=== PATIENT | female | born 1960 | race African-American/Black ===

== ENCOUNTER 2021-03-12 15:41 | Emergency (ER) | payer BC, SELFPAY ==
--- NOTE | ~2021-03-12 | XR_ITS ---
XR abdomen/kub 1V DATE: 03/12/2021 17:04 INDICATION: Bilateral kidney pain TECHNIQUE: AP projection, 2 views COMPARISON: None FINDINGS: Approximately 3 mm faint calcification overlies the lower pole of the left kidney. A small er faint calcification overlies the upper pole. 4.5 mm calcification overlies the expected course of the left ureter at the S1 level. There are multi ple bilateral pelvic calcifications, which are most likely calcified pelvic phleboliths. There is concern for urinary tract calculi, noncontrast CT abdomen pelvis would be more sensitive and accurate. The bowel gas pattern is unremarkable, without evidence of obstruction. The psoas shadows appear inta ct. No visceromegaly is detected. There is degenerative change and mild levoscoliosis of the lower thoracic and lumbar spine. IMPRESSION: Possible urinary tract calcified calculi; consider noncontrast CT abdomen pelvis for more definitive evaluation for such Otherwise nonspecific abdomen Reviewed, dictated and finalized at [facility]. Reviewed, dictated and finalized at [facility]. IMPRESSION: Possible urinary tract calcified calculi; consider noncontrast CT a bdomen pelvis for more definitive evaluation for such Otherwise nonspecific abdomen
[2021-03-12 15:55] VITALS: BP 145/83; PULSE 82; RESP 18; TEMP 36.7; O2SAT 97
--- NOTE | 2021-03-12 15:57 | ED.URI ---
HPI - URI/Sore Throat General Chief Complaint: Upper Respiratory Infection Stated Complaint: sinus infection Source: patient and RN notes reviewed Mode of arrival: ambulatory Limitations: no limitations History of Present Illness MD elicited complaint: nasal congestion Related Data Allergies Allergy/AdvReac Type Severity Reaction Status Date / Time No Known Allergies Allergy Unverified 11/01/18 12:56 Review of Systems Review of Systems: CONSTITUTIONAL: Denies malaise, chills, sweats, or fever. EYES: Denies visual changes, redness, or discharge. ENT: Reports rhinorrhea, congestion, sinus pain, otalgia and sore throat. CARDIOVASCULAR: Denies chest pain, palpitations, or edema. RESPIRATORY: Reports cough. Denies dyspnea. GASTROINTESTINAL: Denies abdominal pain, nausea, vomiting, diarrhea SKIN: Denies rash or itching. MUSCULOSKELETAL: Denies myalgia. NEUROLOGIC: Denies headache. All systems reviewed & are unremarkable except as noted in HPI and below PMFSH Family History Family History (Updated 02/15/14 @ 07:13 by DOCTOR UNKNOWN) Mother Family history of arthritis Social History Social History Smoking status: Light tobacco smoker Second hand tobacco smoke exposure: No Alcohol intake: current Comments At time of signature, agree with nursing past medical, surgical, social and family history. There is no relevant family history pertinent to the presenting complaint Exam Narrative: GENERAL: Well-appearing, well-nourished, and in no acute distress. HEAD: Normocephalic EYES: PERRLA, conjunctivae clear ENT: Nares clear, turbinates edematous and erythematous, clear discharge. Mucous membranes moist. TM pearly riggins with dull light reflex bilaterally; no tragal tenderness. Oropharynx erythematous without lesions. Tonsils enlarged and without exudate, no drooling, no hoarseness, no trismus, uvula midline. NECK: Supple. No lymphadenopathy CHEST: Clear to auscultation, breath sounds equal. No wheezing, rhonchi, rales, or stridor. No respiratory distress, speaks in full sentences. HEART: Regular rate and rhythm. No murmur heard. SKIN: Warm, dry, no rash. NEURO: Alert and oriented x3. PSYCH: Normal mood and affect Course Course Emergency Course: Patient is aware of diagnosis, understands and agrees to treatment plan. Anticipatory guidance given. Patient agrees to follow-up as directed and is aware of reasons to seek care at the emergency department. Portions of this record may have been created with voice recognition software Vital Signs Vital signs: Vital Signs Temperature 98.1 F 03/12/21 15:55 Pulse Rate 82 03/12/21 15:55 Respiratory Rate 18 03/12/21 15:55 Blood Pressure 145/83 H 03/12/21 15:55 Pulse Oximetry 97 03/12/21 15:55 Temperature 98.1 F 03/12/21 15:55 Pulse Rate 82 03/12/21 15:55 Respiratory Rate 18 03/12/21 15:55 Blood Pressure 145/83 H 03/12/21 15:55 Pulse Oximetry 97 03/12/21 15:55 Reviewed. MDM - URI/Sore Throat MDM Narrative Medical decision making narrative: Differential diagnosis considered: Lawrence virus, strep pharyngitis, allergic rhinitis, upper respiratory tract infection, sinusitis, rhinosinusitis, nasopharyngitis. viral pharyngitis, otitis media, otitis externa, pneumonia, bronchitis, viral cough syndrome, viral syndrome, and influenza. Exam findings show no acute concerns or changes; patient is non-toxic appearing and is in no distress. Patient is appropriate for outpatient treatment and follow-up. Critical Care Time Critical Care Time Critical Care Time: No
--- NOTE | 2021-03-12 16:47 | ED.GENADULT ---
HPI - General Adult General Chief complaint: Urogenital-Female Stated complaint: sinus infection Time Seen by Provider: 03/12/21 16:38 History of Present Illness HPI narrative: 61-year-old female presents with concern for bilateral flank pain, body aches, incontinence of urine, orange-colored urine. She denies abdominal pain, nausea, vomiting, diarrhea. Denies intervention. No separate complaint she reports ongoing problems with her sinuses. Reports she had 2-month history of sinus problems that started in October, improved but did not resolve completely. Reports symptoms worsened in the last 3 weeks. Reports sinus pain, pressure and drainage, thick drainage. Reports she has been using nasal spray with no relief. MD complaint: Flank pain Related Data Allergies Allergy/AdvReac Type Severity Reaction Status Date / Time No Known Allergies Allergy Verified 03/12/21 16:51 Review of Systems Review of Systems: CONSTITUTIONAL: Denies malaise, chills, sweats, or fever. HEENT: Sinus congestion, pain, drainage CARDIOVASCULAR: Denies chest pain, palpitations, or edema. RESPIRATORY: Denies cough or dyspnea. GASTROINTESTINAL: Denies abdominal pain, nausea, vomiting, diarrhea, bloody, or mucous stools. GENITOURINARY: Reports dysuria, hematuria, urine incontinence. MUSCULOSKELETAL: Reports bilateral flank pain and myalgia. [facility] Family History Family History (Updated 02/15/14 @ 07:13 by DOCTOR UNKNOWN) Mother Family history of arthritis Social History Social History Smoking status: Light tobacco smoker Second hand tobacco smoke exposure: No Alcohol intake: current Exam Narrative: GENERAL: Well-appearing, well-nourished, and in no acute distress. HEAD: Normocephalic, atraumatic. EYES: PERRLA, sclera clear ENT: Mucous membranes moist. TM not visible due to excess cerumen. Oropharynx without erythema, edema NECK: Supple CHEST: No respiratory distress. Clear to auscultation. No bony deformities, no asymmetry. Speaks in full sentences. HEART: Regular rate and rhythm. No murmur heard. Normal peripheral pulses. ABDOMEN: Soft, nontender, nondistended, normal active bowel sounds, no palpable masses. No CVA tenderness SKIN: Warm, dry, no visible rash. NEURO: Alert and oriented x3. PSYCH: Normal mood and affect Course Vital Signs Vital signs: Vital Signs Temperature 98.1 F 03/12/21 15:55 Pulse Rate 82 03/12/21 15:55 Respiratory Rate 18 03/12/21 15:55 Blood Pressure 145/83 H 03/12/21 15:55 Pulse Oximetry 97 03/12/21 15:55 Temperature 98.1 F 03/12/21 15:55 Pulse Rate 82 03/12/21 15:55 Respiratory Rate 18 03/12/21 15:55 Blood Pressure 145/83 H 03/12/21 15:55 Pulse Oximetry 97 03/12/21 15:55 Medical Decision Making MDM Narrative Medical decision making narrative: Exam findings and imaging show no acute concerns or changes; patient is non-toxic appearing and is in no distress. Patient is appropriate for outpatient treatment and follow-up. Vital Signs Vital Signs: Vital Signs Temperature 98.1 F 03/12/21 15:55 Pulse Rate 82 03/12/21 15:55 Respiratory Rate 18 03/12/21 15:55 Blood Pressure 145/83 H 03/12/21 15:55 Pulse Oximetry 97 03/12/21 15:55 Temperature 98.1 F 03/12/21 15:55 Pulse Rate 82 03/12/21 15:55 Respiratory Rate 18 03/12/21 15:55 Blood Pressure 145/83 H 03/12/21 15:55 Pulse Oximetry 97 03/12/21 15:55 Imaging Data My impression: Images reviewed, interpreted by radiologist, agree, see report. Radiologist's impression: XR abdomen/kub 1V DATE: 03/12/2021 17:04 INDICATION: Bilateral kidney pain TECHNIQUE: AP projection, 2 views COMPARISON: None FINDINGS: Approximately 3 mm faint calcification overlies the lower pole of the left kidney. A smaller faint calcification overlies the upper pole. 4.5 mm calcification overlies the expected course of the left ureter at the S1 level. There are multiple bilateral pelvic calcifications, w
== END 2021-03-12 17:38 | disposition home or self-care (01) ==
PROVIDERS: Emergency Provider Nurse Practitioner; PCP Physician Assistant
DX: N20.2 Calculus of kidney with calculus of ureter (principal); J01.90 Acute sinusitis, unspecified
CPT/HCPCS: 74018; 81003; 99213; G0463

== ENCOUNTER 2022-08-14 07:26 | Inpatient (IN) | payer BC, SELFPAY ==
[2022-08-14] VITALS (58 sets, daily range): BP systolic 124–181; BP diastolic 71–153; PULSE 74–151; RESP 16–41; TEMP 36.3–36.6; O2SAT 87–100; BMI 50.8
--- NOTE | ~2022-08-14 | XR_ITS ---
XR chest 1V portable 08/14/2022 08:14 Indication: Sudden onset of shortness of breath Procedure: AP portable chest Comparison: 01/06/2007 Findings: Cardiomegaly with pulmonary edema. No significant effusion. No pneumothorax. No acute osseo us abnormality. Impression: 1: Cardiomegaly with pulmonary edema. Reviewed, dictated and finalized at [facility]. TIC BIOLOGIST Impression: 1: Cardiomegaly with pulmonary edema.
--- NOTE | 2022-08-14 07:31 | ED.SOB ---
HPI - SOB/Dyspnea General Chief Complaint: Shortness of Breath/Dyspnea Stated Complaint: SOB History of Present Illness HPI Narrative: Patient is a 62-year-old female who presents ER with shortness of breath. Sudden onset 1 hour ago after waking up. EMS arrived and found patient to hypoxic. She was also in A-fib with RVR with elevated blood pressures. Patient placed on CPAP. Patient denies chest pain or chest pressure. She is very dyspneic still while on CPAP. She endorses orthopnea as well as productive cough. No fevers or chills or sweats. Patient denies history of A-fib however chart review does show a previous visit for atrial fibrillation. Related Data Allergies Allergy/AdvReac Type Severity Reaction Status Date / Time No Known Allergies Allergy Verified 04/08/21 15:36 Review of Systems Review of Systems: All systems reviewed & are unremarkable except as noted in HPI and below Constitutional: Constitutional: Denies chills, Denies fatigue and Denies fever(s) ENT: Denies nasal congestion and Denies sore throat Cardiovascular: Cardiovascular: Denies chest pain, Reports rapid heart rate and Denies radiating jaw, neck or arm pain Respiratory: Respiratory: Denies cough, Reports dyspnea and Denies wheezing Comments: Positive orthopnea Gastrointestinal: Gastrointestinal: Denies abdominal pain, Denies nausea and Denies vomiting Neurologic: Denies syncope, Denies headache(s) and Denies focal weakness PMF Past Medical History Medical History Obstructive sleep apnea Paroxysmal atrial fibrillation Surgical History Surgical History History of hysterectomy History of right knee surgery Family History Family History Mother Family history of arthritis Social History Social History (Updated 08/14/22 @ 15:10 by Beatris Sykes PA-C) Social History: Surrogate medical decision maker: Mabel Marrero, daughter. Code status: Full code. Smoking status: Former smoker Second hand tobacco smoke exposure: No Alcohol intake: current Alcohol use details: Six beers on the weekends. Substance use: never Additional living arrangements comments: Lives alone in [place]. Has 2 grown children. 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 Exam Narrative: GENERAL: Ill-appearing, morbidly obese, and in moderate distress. HEAD: Normocephalic, atraumatic. EYES: PERRLA and EOMI. ENT: Mucous membranes moist. CHEST: Bilateral rales. Moderate respiratory distress. HEART: Regular rate and rhythm. Normal peripheral pulses. ABDOMEN: Soft, nontender, nondistended. EXTREMITIES: Normal range of motion. 1+ edema. SKIN: Warm, dry, no rash. NEURO: Alert and oriented x3. PSYCH: Normal mood and affect. Course Course Emergency Course: Patient informed of diagnosis and treatment plan. Heart rate controlled with diltiazem 10 mg. Patient received IV Lasix as well as oral potassium. Excepted by hospitalist service Dr. Nguyen. Vital Signs Vital signs: Vital Signs Temperature 97.6 F 08/14/22 07:25 Pulse Rate 151 H 08/14/22 07:25 Respiratory Rate 20 08/14/22 07:25 Blood Pressure 166/144 H 08/14/22 07:25 Pulse Oximetry 96 08/14/22 07:25 Oxygen Delivery Room Air 08/14/22 07:25 Temperature 97.6 F 08/14/22 07:25 Pulse Rate 81 08/14/22 16:17 Respiratory Rate 19 08/14/22 16:17 Blood Pressure 181/153 H 08/14/22 16:17 Pulse Oximetry 93 08/14/22 16:17 Oxygen Delivery BiPAP 08/14/22 09:14 MDM - SOB/Dyspnea Lab Data 08/14/22 07:57 08/14/22 07:57 Labs: Lab Results 08/14/22 08/14/22 08/14/22 Range/Units 07:27 07:57 07:57 WBC 7.2 (4.5-10.0) K/mm3 RBC 5.08 (4.2-5.4) M/mm3 Hgb 12.8 (12.0-15.0) g/dL H
--- NOTE | 2022-08-14 07:34 | ECG_ITS ---
Measurements Intervals [place] Rate: 123 P: GA: 0 QRS: -34 QRSD: 90 T: 94 QT: 252 QTc: 361 Interpretive Statements ATRIAL FIBRILLATION WITH RAPID VENTRICULAR RESPONSE LEFT AXIS DEVIATION [QRS AXIS < -30] NONSPECIFIC ST & T-WAVE ABNORMALITY NO PREVIOUS ECG AVAILABLE FOR COMPARISON Electronically Signed On 08-14-2022 15:24:01 PRUNER by Ross Roper M.D.
--- NOTE | 2022-08-14 07:36 | PC.NURSE ---
RT at bedside. pt placed on Bipap.
[2022-08-14] MEDS: dilTIAZem HCl INJ 25 MG/5 ML VIAL 10 MG IV PUSH (07:42)
[2022-08-14] MEDS: NITROGLYCERIN OINTMENT 1 INCH DOSE TRANSDERM (07:56)
[2022-08-14 08:04] LABS: Basophils Absolute Auto 0.1 K/mm3 (0.0-0.1); Basophils Percent Auto 0.7 % (0.2-1.2); Eosinophils Absolute Auto 0.1 K/mm3 (0-0.3); Eosinophils Percent Auto 1.8 % (0-4.4); Hematocrit 40.3 % (37.0-47.0); Hemoglobin 12.8 g/dL (12.0-15.0); Immature Granulocyte Absolute 0.01 K/mm3 (0.00-0.031); Immature Granulocyte Percent A 0.1 % (0-0.5); Lymphocytes Absolute Auto 2.95 K/mm3 (0.9-3.2); Mean Corpuscular HGB Conc 31.8 g/dl (32-36); Mean Corpuscular Hemoglobin 25.2 pg (26-34); Mean Corpuscular Volume 79.3 fl (80-100); Mean Platelet Volume 10.5 fl (7.4-10.4); Monocytes Absolute Auto 0.4 K/mm3 (0.1-0.6); Monocytes Percent Auto 5.3 % (2.6-8.5); Neutrophils Absolute Auto 3.7 K/mm3 (1.3-6.7); Neutrophils Percent Auto 51.1 % (45.5-73.1); Platelet Count Result 253 k/mm3 (150-375); Red Blood Count 5.08 M/mm3 (4.2-5.4); Red Cell Distribution Width 15.9 % (11.5-14.5); White Blood Count 7.2 K/mm3 (4.5-10.0)
[2022-08-14 08:22] LABS: Alanine Aminotransferase 37 U/L (6-35); Albumin Level 4.1 g/dL (3.5-5.1); Alkaline Phosphatase 111 U/L (38-126); Anion Gap 10 mmol/L (8-16); Aspartate Amino Transferase 46 U/L (14-36); Bilirubin,Total 0.7 mg/dL (0.2-1.3); Blood Urea Nitrogen 10 mg/dL (7-17); Calcium 8.3 mg/dL (8.4-10.2); Carbon Dioxide 23 mmol/L (22-30); Chloride 108 mmol/L (98-107); Estimated Glomerular Filt Rate > 60; Glucose 154 mg/dL (65-110); Potassium 2.9 mmol/L (3.4-5.0); Sodium 141 mmol/L (137-145)
[2022-08-14 08:37] LABS: NT Pro B Type Natriuretic Pept 633 pg/mL (19.9-100); Troponin I 0.118 ng/mL (0.000-0.034)
[2022-08-14 08:40] LABS: Influenza A QL RT-PCR Negative (Negative); Influenza B QL RT-PCR Negative (Negative); SARS-CoV-2 RNA PCR Negative
[2022-08-14] MEDS: FUROSEMIDE INJ 40 MG/4 ML VIAL IV PUSH ×2 (08:55→23:34)
[2022-08-14] MEDS: POTASSIUM CHLORIDE 20 MEQ TABLET 40 MEQ PO (08:55)
[2022-08-14 09:36] LABS: INR 1.1; Partial Thromboplastin Time 24.6 SECONDS (22.3-36.8); Prothrombin Time 13.7 Seconds (11.1-14.7)
[2022-08-14] MEDS: dilTIAZem 100 MG/100 ML 100 MG/100 ML BAG IV CONT (10:12)
[2022-08-14] MEDS: ENOXAPARIN 120 MG/0.8 ML SYRINGE SUB-Q ×2 (10:12→23:34)
[2022-08-14 12:10] LABS: Troponin I 0.257 ng/mL (0.000-0.034)
--- NOTE | 2022-08-14 13:35 | ECHO_ITS ---
Patient Info Name: Lis Lazaro Age: 62 years : 1960 Gender: Female Ht: 63 in Wt: 264 lbs BSA: 2.38 m2 HR: 91 bpm BP: 131 / 80 mmHg Heart Rhythm: Atrial Fibrillation Technical Quality: Fair Exam Date: 08/14/2022 3:10 PM Exam Location: [facility] Pulmonary Exam Room: [facility] Patient Status: Inpatient Admit Date: 08/14/2022 Staff Ordering Physician: Beatris Sykes PA-C Horticulture Worker: Alivia Berry RCS Attending Provider: Ross Nguyen MD Referring Physician: Mony VIDALES; Exam Type: CA echo doppler color flow Study Info Indications - CARDIOMEGALY PULM EDEMA AFIB Complete two-dimensional, color flow and Doppler transthoracic echocardiogram is performed. Summary 1. Complete two-dimensional, color flow and Doppler transthoracic echocardiogram is performed. 2. Left ventricular chamber dimension is normal. 3. Left ventricular systolic function is normal, estimated at 60-65%. 4. The left ventricular diastolic function is abnormal. 5. E/e' 16 is elevated. 6. Atrial fibrillation. 7. Left atrial chamber dimension is mildly enlarged. 8. There is mild aortic valve sclerosis. 9. The mitral valve has mildly calcified annulus. 10. There is mild mitral valve regurgitation. 11. No pulmonary hypertension, estimated pulmonary arterial systolic pressure is 34 mmHg. 12. There is trace pulmonic regurgitation. Left Ventricle E/e' 16 is elevated. Atrial fibrillation. Left ventricular chamber dimension is normal. Left ventricular systolic function is normal, estimated at 60-65%. The left ventricular diastolic function is abnormal. Right Ventricle Right ventricular systolic function is normal and with normal TAPSE 2.4 cm. Right ventricular chamber dimension is normal. Left Atria Left atrial chamber dimension is mildly enlarged. Right Atria Right atrial chamber dimension is normal. Aortic Valve The aortic valve is trileaflet. There is mild aortic valve sclerosis. There is no aortic valve stenosis. There is no aortic valve regurgitation. Pulmonic Valve There is trace pulmonic regurgitation. Mitral Valve The mitral valve has mildly calcified annulus. There is no mitral valve stenosis. There is mild mitral valve regurgitation. Tricuspid Valve There is no tricuspid valve regurgitation. No pulmonary hypertension, estimated pulmonary arterial systolic pressure is 34 mmHg. Pericardium/Pleural There is no pericardial effusion. Inferior Vena Cava Normal inferior vena cava with >50% collapse upon inspiration consistent with normal right atrial pressure, 5 mmHg. Aorta The aortic root size at the sinus of Valsalva is normal. Left Ventricular Outflow Tract Name Value Normal LVOT 2D LVOT Diameter 2.0 cm LVOT Doppler LVOT Peak Gradient 6 mmHg LVOT Mean Gradient 3 mmHg LVOT VTI 20 cm LVOT VTI/AV VTI Ratio 0.7 LVOT Stroke Volume 63 ml LVOT CO 16.2 l/min LVOT
--- NOTE | 2022-08-14 14:30 | PM.IMHP ---
H&P: HPI History of Present Illness Date/Time: 08/14/22 14:30 Chief Complaint: Shortness of breath. Narrative: This is a pleasant 62-year-old female with paroxysmal atrial fibrillation and untreated obstructive sleep apnea presented to the emergency department via EMS from home for evaluation of shortness of breath. Patient provides the following history. she has not felt well for a couple of days with generalized weakness, shortness of breath with exertion, and some fluttering in her chest. This morning she was awakened from sleep with sudden shortness of breath and emergency services were summoned. On arrival to the emergency department she was hypertensive with a blood pressure 166/144 and in atrial fibrillation with rapid ventricular response. Due to work of breathing she was placed on BiPAP and she was started on nitropaste and a Cardizem drip for the rapid heart rate. Troponin and proBNP were both a bit elevated at 0.118 and 633 respectively. Chest x-ray showed cardiomegaly with pulmonary edema And she was given a dose of Lovenox 40 mg IV push x1 as well as a therapeutic dose of enoxaparin. She is being admitted in this setting for further treatment evaluation. At the time my evaluation she is feeling a bit better but reports that she is still quite tired. Heart rate is now in the 70s to 80s but she remains in atrial fibrillation. She denies syncope, near syncope, exertional chest pain, pleuritic pain, paroxysmal nocturnal dyspnea, and significant lower extremity edema. No nausea, vomiting, or sweats. She does not drink caffeine in excess. She drinks perhaps 6 beers every other weekend. No known history of thyroid disease. She does not wear her CPAP at nighttime. Review of Systems Review of Systems: Twelve systems were reviewed and are negative except for as per HPI. [facility], [facility] Past Medical History Medical History Obstructive sleep apnea Paroxysmal atrial fibrillation Surgical History Surgical History History of hysterectomy History of right knee surgery Family History Family History Mother Family history of arthritis Social History Social History (Updated 08/14/22 @ 15:10 by Beatris Sykes PA-C) Social History: Surrogate medical decision maker: Mabel Marrero, daughter. Code status: Full code. Smoking status: Former smoker Second hand tobacco smoke exposure: No Alcohol intake: current Alcohol use details: Six beers on the weekends. Substance use: never Additional living arrangements comments: Lives alone in [place]. Has 2 grown children. 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 Meds Home Medications and Allergies Allergies Allergy/AdvReac Type Severity Reaction Status Date / Time No Known Allergies Allergy Verified 04/08/21 15:36 Vital Signs Vital Signs - 24 hr 08/14/22 07:25 08/14/22 08:32 08/14/22 09:14 Temperature 97.6 F Pulse Rate 151 H 74 Respiratory Rate 20 25 H Blood Pressure 166/144 H Pulse Oximetry 96 100 Oxygen Delivery Room Air BiPAP BiPAP 08/14/22 10:12 08/14/22 09:16 08/14/22 11:12 Temperature Pulse Rate 103 H 108 H Respiratory Rate Blood Pressure 152/140 H 180/101 H Pulse Oximetry 87 L Oxygen Delivery Exam Narrative: General: Mildly ill-appearing female on her left side in bed in no acute distress. Weight: 120 kg. HEENT: PERRL, EOMI. Sclera anicteric. Oral mucosa moist. Oropharynx is crowded. Neck: Supple. Exam limited due to neck circumference. No obvious JVD. Respiratory: Respirations are nonlabored and she is speaking in full sentences. Faint crackles at the bases posteriorly. Cardiovascular: Irregularly irregular rate and rhythm. Distant heart tones. Gastrointestinal: Abdomen is soft, obese,
[2022-08-14 16:13] LABS: Magnesium 1.9 mg/dL (1.6-2.3); Potassium 3.5 mmol/L (3.4-5.0)
[2022-08-14 16:37] LABS: Troponin I 0.578 ng/mL (0.000-0.034)
[2022-08-14 18:03] LABS: Hemoglobin A1C 5.9 % (<5.7)
[2022-08-14 19:16] LABS: Thyroid Stimulating Hormone Reflex 0.964 uIU/mL (0.465-4.68)
--- NOTE | 2022-08-14 19:29 | PC.NURSE ---
Received report from Kallie HERNANDEZ. First encounter w/ pt. Pt resting comfortably inbed, NAD, updated pt on plan of care. 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 a&ox4, pt has no complaints.
--- NOTE | 2022-08-14 21:24 | ADMGEN ---
This patient, Lis Lazaro, was admitted to IMU Room 213-01. Patient/family oriented to hospital policies and general routines including ID bracelet, bed and alarms, visiting hours, pain management, procedures, bathroom and other care routines, personal items, smoking policy, room service/diet, and visiting hours. Information on how to activate the Rapid Response Team has been discussed. Patient/Family are encouraged to report perceived risks to care and to ask questions if they do not understand what they are told or what they should do.
[2022-08-14] MEDS: dilTIAZem 100 MG/100 ML 100 MG/100 ML BAG 10 MG IV CONT (23:00)
[2022-08-15] VITALS (21 sets, daily range): BP systolic 100–137; BP diastolic 50–88; PULSE 58–113; RESP 16–24; TEMP 36.2–37.3; O2SAT 91–100
[2022-08-15 04:50] LABS: Hematocrit 39.8 % (37.0-47.0); Hemoglobin 12.7 g/dL (12.0-15.0); Mean Corpuscular HGB Conc 31.9 g/dl (32-36); Mean Corpuscular Volume 78.2 fl (80-100); Mean Platelet Volume 10.7 fl (7.4-10.4); Platelet Count Result 266 k/mm3 (150-375); Red Blood Count 5.09 M/mm3 (4.2-5.4); Red Cell Distribution Width 15.9 % (11.5-14.5); White Blood Count 7.8 K/mm3 (4.5-10.0)
[2022-08-15 05:11] LABS: LDL Cholesterol Direct 124 mg/dL
[2022-08-15 05:23] LABS: Alanine Aminotransferase 37 U/L (6-35); Alkaline Phosphatase 108 U/L (38-126); Anion Gap 6 mmol/L (8-16); Aspartate Amino Transferase 39 U/L (14-36); Bilirubin,Total 0.6 mg/dL (0.2-1.3); Blood Urea Nitrogen 11 mg/dL (7-17); Calcium 8.8 mg/dL (8.4-10.2); Carbon Dioxide 33 mmol/L (22-30); Chloride 99 mmol/L (98-107); Cholesterol 223 mg/dL (0-200); Estimated CRCL calculation 92 ml/min; Estimated Glomerular Filt Rate > 60; Glucose 111 mg/dL (65-110); HDL Direct 44 mg/dL; Magnesium 1.8 mg/dL (1.6-2.3); Potassium 2.9 mmol/L (3.4-5.0); Sodium 138 mmol/L (137-145); Triglycerides 79 mg/dL (<150)
[2022-08-15] MEDS: POTASSIUM CHLORIDE 20 MEQ TABLET.ER 40 MEQ PO (09:25)
[2022-08-15] MEDS: ENOXAPARIN 120 MG/0.8 ML SYRINGE SUB-Q (09:25)
[2022-08-15] MEDS: POTASSIUM CHLORIDE 20 MEQ PACKET (FOR LIQUID) 40 MEQ PO (09:25)
[2022-08-15] MEDS: FUROSEMIDE INJ 40 MG/4 ML VIAL IV PUSH ×2 (09:25→20:11)
[2022-08-15] MEDS: dilTIAZem 100 MG/100 ML 100 MG/100 ML BAG 10 MG IV CONT (09:26)
--- NOTE | 2022-08-15 09:40 | PC.NURSE ---
Patient converted to Sinus [place] at 09:29am Dr. Nguyen notified.
--- NOTE | 2022-08-15 09:44 | ECG_ITS ---
Measurements Intervals [place] Rate: 62 P: 34 IA: 172 QRS: 0 QRSD: 86 T: 83 QT: 471 QTc: 479 Interpretive Statements SINUS RHYTHM PROLONGED QT INTERVAL ABNORMAL ECG COMPARED TO ECG 08/14/2022 07:34:10 SINUS RHYTHM REPLACES ATRIAL FIBRILLATION PROLONGED QT INTERVAL NOW PRESENT Electronically Signed On 08-16-2022 8:02:11 DIRECTOR PATIENT FINANCIAL SERVICES by Ross Roper M.D.
--- NOTE | 2022-08-15 09:58 | PM.CNCAR ---
Assessment and Plan Assessment and plan (1) Atrial fibrillation with rapid ventricular response: Code(s): I48.91 - Unspecified atrial fibrillation Status: Acute Plan This is a 62-year-old woman who has typical obesity sleep apnea hypoventilation syndrome that is not compliant with her CPAP treatment she also has a result of this atrial fibrillation which she is also noncompliant with her antiarrhythmic drug therapy. Her dough catcher notes from the past indicate flecainide has been effective for her. Her echocardiogram during this hospital stay does not show any significant new pathology. I will resume her previously effective antiarrhythmic agent and recommend systemic anticoagulation with Xarelto. Will follow her with you while she is in the hospital I will presume that she will follow-up with her established dough catcher upon discharge. Ross Roper MD [facility] History of Present Illness History of Present Illness Consult date/time: 08/15/22 09:58 Consult reason: atrial fibrillation Reason For Visit: Afib RVR,Respiratory Failure,Pulmonary Edema Narrative: This is a 62-year-old woman I am seeing with the request of the hospitalist because of atrial fibrillation and dyspnea. Patient is unknown to me prior to this consultation. She is a woman who has a history of atrial fibrillation morbid obesity and sleep apnea who clearly is noncompliant with medical treatment and follow-up. She came to the hospital yesterday because of the sudden onset of shortness of breath. She states her heart rate was beating rapidly and erratically as well. She has episodes of her heart beating rapidly off and on for a number of years. She has a history of atrial fibrillation and was seeing dough catcher in [place] for a number of years for follow-up of this. According to their notes which are in the chart she was doing well with flecainide treatment but on her own accord she decided to discontinue her antiarrhythmic therapy and follow-up with these physicians. She will not tell me how long she has been off of her medication. She also has a history of severe sleep apnea that was identified and previously sleep studies and is choosing to not treat this as she has been prescribed CPAP and has never gone through with starting treatment. According to the dough catcher's notes there are no other cardiac pathology identified. An echocardiogram was done at admission to this hospital yesterday which was interpreted by Dr. Domínguez that demonstrates preserved LV systolic function and no serious valvular disease. She is not reporting any orthopnea PND or accumulating edema. There is no history of LV systolic dysfunction now or in the chart previously from what I can tell. Review of Systems Constitutional: Constitutional: Reports lethargy Eyes: Eyes: Reports no additional eye complaints ENT: Reports system reviewed and no additional complaints, except as documented Cardiovascular: Cardiovascular: Reports palpitations Respiratory: Respiratory: Reports dyspnea Gastrointestinal: Gastrointestinal: Reports no additional gastrointestinal complaints Musculoskeletal: Musculoskeletal: Reports no additional musculoskeletal complaints Integumentary/Breasts: Skin/Breast: Reports system reviewed and no additional complaints, except as docu Neurologic: Reports system reviewed and no additional complaints, except as documented Endocrine: Endocrine: Reports no additional endocrine complaints Hematologic/Lymphatic: Hematologic/Lymphatic: Reports no additional hematologic/lymphatic complaints Allergic/Immunologic: Allergic/Immunologic: Reports no additional allergic/immunologic complaints [facility] Past Medical History Medical History Obstructive sleep apnea Paroxysmal atrial fibrillation Surgical History Surgical History History of hystere
--- NOTE | 2022-08-15 12:05 | PM.IMPN ---
Progress Note: A&P Assessment and Plan (1) Atrial fibrillation with rapid ventricular response: Code(s): I48.91 - Unspecified atrial fibrillation Status: Acute (2) Elevated troponin: Code(s): R77.8 - Other specified abnormalities of plasma proteins Status: Acute (3) Cardiomegaly: Code(s): I51.7 - Cardiomegaly Status: Acute (4) Elevated blood pressure reading: Code(s): R03.0 - Elevated blood-pressure reading, without diagnosis of hypertension Status: Acute (5) Pulmonary edema: Code(s): J81.1 - Chronic pulmonary edema Status: Acute (6) Obstructive sleep apnea: Code(s): G47.33 - Obstructive sleep apnea (adult) (pediatric) Status: Acute (7) Hypokalemia: Code(s): E87.6 - Hypokalemia Status: Acute (8) Hyperglycemia: Code(s): R73.9 - Hyperglycemia, unspecified Status: Acute Plan The patient presented to the emergency department via EMS from home for evaluation of sudden onset of shortness of breath this morning as per HPI. Labs, imaging, EKG, and all reports were personally reviewed. She was found to be in atrial fibrillation with rapid ventricular response and she has since been started on a diltiazem drip with improvement in her rate. Chest x-ray shows findings of cardiomegaly and pulmonary edema which are concerning for congestive heart failure and an echocardiogram has been ordered. CHADS2 Vasc score is probably 3 (hypertension, CHF, age) and she has been started on Lovenox 1 milligram/kilogram b.i.d.. She was given 40 mg IV push furosemide in the ED and we will continue with judicious diuresis with close monitoring of volume status, renal function, and electrolytes. Potassium was 2.9 on arrival and that will be replaced and monitored. Troponin is elevated, likely due to AFib/RVR and significant hypertension on arrival as she has no chest pain there no acute ST segment deviations noted on EKG today. Blood pressures have been persistently elevated but have improved while on the Cardizem drip and she will likely need to be started on antihypertensive. Random glucose is elevated at 154; check fasting glucose and hemoglobin A1c. CPAP will be provided for the patient to use while hospitalized. AFib/RVR may very well have been provoked by untreated sleep apnea and this was discussed with the patient. Her home medications will be reviewed and resumed as appropriate. Subjective Date/time seen: 08/15/22 12:05 No new complaints Exam Narrative: General: Mildly ill-appearing female on her left side in bed in no acute distress. Weight: 120 kg. HEENT: PERRL, EOMI. Sclera anicteric. Oral mucosa moist. Oropharynx is crowded. Neck: Supple. Exam limited due to neck circumference. No obvious JVD. Respiratory: Respirations are nonlabored and she is speaking in full sentences. Faint crackles at the bases posteriorly. Cardiovascular: Irregularly irregular rate and rhythm. Distant heart tones. Gastrointestinal: Abdomen is soft, obese, nontender, and nondistended with positive bowel sounds. Skin: Warm and dry. No rash or lesions on limited exam. Extremities: No cyanosis or clubbing. 1+ mina ankle edema bilaterally. Radial and pedal pulses intact. Neurological: Alert. Cranial nerves 2-12 are grossly intact. No gross focal deficits to casual conversation. Psychiatric: Pleasant and cooperative with normal mood and affect. Judgment and insight intact. Objective Data Vital Signs Vital Signs: Vital Signs - 24 hr 08/14/22 12:12 08/14/22 12:15 08/14/22 12:17 Temperature Pulse Rate 94 88 105 H Respiratory Rate 27 H 16 24 H Blood Pressure 154/112 H Pulse Oximetry 93 92 93 Oxygen Delivery Oxygen Flow Rate 08/14/22 12:21 08/14/22 12:30 08/14/22 12:32 Temperature Pulse Rate 98 76 82 Respiratory Rate 24 H 23 H 24 H Blood Pressure 156/106 H 152/105 H Pulse Oximetry 93 93 97 Oxygen Delivery Oxygen Flow Rate 08/14/22
[2022-08-15] MEDS: FLECAINIDE ACETATE 100 MG TABLET PO ×2 (12:14→20:10)
[2022-08-15] MEDS: RIVAROXABAN 20 MG TABLET PO (17:40)
[2022-08-16] VITALS (9 sets, daily range): BP systolic 130–137; BP diastolic 66–86; PULSE 61–73; RESP 16; TEMP 36.4–36.8; O2SAT 93–100
[2022-08-16 08:56] LABS: Hematocrit 41.6 % (37.0-47.0); Hemoglobin 13.1 g/dL (12.0-15.0); Mean Corpuscular HGB Conc 31.5 g/dl (32-36); Mean Corpuscular Volume 79.2 fl (80-100); Mean Platelet Volume 10.3 fl (7.4-10.4); Platelet Count Result 256 k/mm3 (150-375); Red Blood Count 5.25 M/mm3 (4.2-5.4); Red Cell Distribution Width 16.1 % (11.5-14.5); White Blood Count 7.3 K/mm3 (4.5-10.0)
[2022-08-16 09:07] LABS: Alanine Aminotransferase 33 U/L (6-35); Albumin Level 4.1 g/dL (3.5-5.1); Alkaline Phosphatase 94 U/L (38-126); Anion Gap 6 mmol/L (8-16); Aspartate Amino Transferase 32 U/L (14-36); Bilirubin,Total 0.5 mg/dL (0.2-1.3); Blood Urea Nitrogen 14 mg/dL (7-17); Calcium 9.1 mg/dL (8.4-10.2); Carbon Dioxide 31 mmol/L (22-30); Chloride 98 mmol/L (98-107); Estimated CRCL calculation 81 ml/min; Estimated Glomerular Filt Rate > 60; Glucose 132 mg/dL (65-110); Magnesium 1.9 mg/dL (1.6-2.3); Potassium 3.7 mmol/L (3.4-5.0); Sodium 135 mmol/L (137-145)
[2022-08-16] MEDS: FUROSEMIDE INJ 40 MG/4 ML VIAL IV PUSH (09:53)
[2022-08-16] MEDS: POTASSIUM CHLORIDE 20 MEQ TABLET.ER 40 MEQ PO (09:54)
[2022-08-16] MEDS: FLECAINIDE ACETATE 100 MG TABLET PO (09:54)
--- NOTE | 2022-08-16 10:05 | PM.PNCARD ---
Progress Note: A&P Assessment and Plan (1) Paroxysmal atrial fibrillation: Code(s): I48.0 - Paroxysmal atrial fibrillation Status: Acute Plan This is a 62-year-old black female with paroxysmal atrial fibrillation she not surprisingly was symptomatic with her recurrence of her arrhythmia with noncompliance with medical therapy/follow-up in terms of her hypertension arrhythmias and sleep apnea. I have no additional cardiac recommendations at this time her rhythm seems to be stable now that her antiarrhythmic medication has been resumed. Systemic anticoagulation has also been started according to appropriate guidelines. Expect that she will follow-up with her established local hazmat driver upon discharge. Ross Pina MD [facility] Subjective Date/time seen: Date of service: 08/16/22 10:05 Interval history: Follow-up visit in this 62-year-old woman with: Paroxysmal atrial fibrillation likely related to hypertension as well as morbid obesity/sleep apnea. Patient has been started back on her previously effective antiarrhythmic agent/flecainide and is back in sinus rhythm. Systemic anticoagulation also has been started. No cardiovascular complaints this morning Exam Const: General: comfortable and no acute distress Other: Obese black female who is comfortable talking on the phone with family member HENMT: Mouth: Yes moist mucous membranes Eyes: Sclera: sclerae normal Neck: Neck: supple Other: Unable to comment on JVD because of body habitus Resp: Effort & Inspection: normal respiratory effort Other: Breath sounds are distant because of her size but otherwise clear Cardio: Other: S1-S2 normal PMI cannot be palpated no murmur GI: GI Palp: Yes Soft to palpation Auscultation: normal bowel sounds Skin: General skin exam: normal color Neuro: Other: Cognition intact Objective Data Vital Signs Vital Signs: Vital Signs - 24 hr 08/15/22 12:14 08/15/22 12:00 08/15/22 12:00 Temperature 36.7 C 36.7 C Pulse Rate 69 68 68 Respiratory Rate 24 H 24 H Blood Pressure 118/50 L 118/50 L Pulse Oximetry 100 100 Oxygen Delivery 08/15/22 12:00 08/15/22 14:00 08/15/22 12:00 Temperature Pulse Rate 68 64 Respiratory Rate Blood Pressure Pulse Oximetry 100 Oxygen Delivery Room Air 08/15/22 16:00 08/15/22 13:15 08/15/22 16:00 Temperature Pulse Rate 66 61 Respiratory Rate Blood Pressure Pulse Oximetry 100 Oxygen Delivery Room Air 08/15/22 16:00 08/15/22 16:00 08/15/22 18:00 Temperature 37.3 C 37.3 C Pulse Rate 72 72 69 Respiratory Rate 20 20 Blood Pressure 109/64 109/64 Pulse Oximetry 97 97 Oxygen Delivery 08/15/22 19:57 08/15/22 20:10 08/15/22 20:00 Temperature 36.4 C L Pulse Rate 66 65 66 Respiratory Rate 20 20 Blood Pressure 119/67 Pulse Oximetry 97 97 Oxygen Delivery Room Air 08/15/22 20:00 08/15/22 22:00 08/15/22 23:39 Temperature 36.2 C L Pulse Rate 67 74 67 Respiratory Rate 20 Blood Pressure 137/85 Pulse Oximetry 98 Oxygen Delivery 08/15/22 23:11 08/16/22 00:00 08/16/22 02:00 Temperature Pulse Rate 67 64 61 Respiratory Rate 20 Blood Pressure Pulse Oximetry 98 Oxygen Delivery Room Air 08/16/22 04:00 08/16/22 04:00 08/16/22 04:00 Temperature 36.4 C L Pulse Rate 64 64 61 Respiratory Rate 16 16 Blood Pressure 130/66 Pulse Oximetry 93 93 Oxygen Delivery Room Air 08/16/22 05:22 08/16/22 08:00 08/16/22 09:54 Temperature 36.8 C Pulse Rate 61 69 65 Respiratory Rate 16 Blood Pressure 137/86 Pulse Oximetry 97 Oxygen Delivery Intake/Output Intake/Output: Intake & Output 08/13/22 08/14/22 08/15/22 08/16/22 23:59 23:59 23:59 23:59 Intake Total 0 2335 1110 Output Total 3300 750 Balance 0 -965 360 Meds/Results Medications: Active Medications Generic Name Dose Route Start Last Admin Trade Name Freq PRN Reason Stop Dose Admin Acetam
--- NOTE | 2022-08-16 11:35 | PM.DS ---
DS: Admitting Diagnosis Discharge Date August 16, 2022 Admitting Diagnosis AFib, acute exacerbation of CHF diastolic, acute on chronic DS: Discharge Diagnosis Discharge Diagnosis (1) Atrial fibrillation with rapid ventricular response: Code(s): I48.91 - Unspecified atrial fibrillation Status: Acute (2) Elevated troponin: Code(s): R77.8 - Other specified abnormalities of plasma proteins Status: Acute (3) Cardiomegaly: Code(s): I51.7 - Cardiomegaly Status: Acute (4) Elevated blood pressure reading: Code(s): R03.0 - Elevated blood-pressure reading, without diagnosis of hypertension Status: Acute (5) Pulmonary edema: Code(s): J81.1 - Chronic pulmonary edema Status: Acute (6) Obstructive sleep apnea: Code(s): G47.33 - Obstructive sleep apnea (adult) (pediatric) Status: Acute (7) Hypokalemia: Code(s): E87.6 - Hypokalemia Status: Acute (8) Hyperglycemia: Code(s): R73.9 - Hyperglycemia, unspecified Status: Acute DS: Summary Hospital Course Hospital Course: Patient is admitted for CHF exacerbation secondary to atrial fibrillation with RVR. She also has noncompliance a cardiac medications. Her home medications were resumed and she converted back to sinus rhythm. She is otherwise feeling much better. Which she will be discharged on a cardiac regimen including Xarelto and flecainide. Will also discharged on potassium and Lasix. Follow up with her prior dredge operator Time Spent with Patient Time attestation: Total time spent providing and/or coordinating discharge services: Exam Narrative: General: Mildly ill-appearing female on her left side in bed in no acute distress. Weight: 120 kg. HEENT: PERRL, EOMI. Sclera anicteric. Oral mucosa moist. Oropharynx is crowded. Neck: Supple. Exam limited due to neck circumference. No obvious JVD. Respiratory: Respirations are nonlabored and she is speaking in full sentences. Faint crackles at the bases posteriorly. Cardiovascular: Irregularly irregular rate and rhythm. Distant heart tones. Gastrointestinal: Abdomen is soft, obese, nontender, and nondistended with positive bowel sounds. Skin: Warm and dry. No rash or lesions on limited exam. Extremities: No cyanosis or clubbing. 1+ mina ankle edema bilaterally. Radial and pedal pulses intact. Neurological: Alert. Cranial nerves 2-12 are grossly intact. No gross focal deficits to casual conversation. Psychiatric: Pleasant and cooperative with normal mood and affect. Judgment and insight intact. DS: Data Data Completed and Pending Labs on day of discharge: Labs from last 24 hours 08/16/22 08/16/22 08:49 08:49 WBC 7.3 RBC 5.25 Hgb 13.1 Hct 41.6 MCV 79.2 L MCH 25.0 L MCHC 31.5 L RDW 16.1 H Plt Count 256 MPV 10.3 Sodium 135 L Potassium 3.7 Chloride 98 Carbon Dioxide 31 H Anion Gap 6 L BUN 14 Creatinine 0.80 Estim Creat Clear Calc 81 Estimated GFR > 60 Glucose 132 H Calcium 9.1 Magnesium 1.9 Total Bilirubin 0.5 AST 32 ALT 33 Alkaline Phosphatase 94 Total Protein 8.0 Albumin 4.1 Discharge Plan Discharge Attending physician on discharge: Ross Nguyen Consulting providers: Ross Roper Discharging Clinician: Ross Nguyen Patient Disposition: Home, Self-Care Activity: no preference Diet: as tolerated Patient Instructions: Antibiotic Form Stand Alone Forms: General Discharge Information Follow-up/Referrals: Michael Ramirez PA-C [Primary Care Provider] - Discharge Medications: New flecainide 100 mg Tablet 100 mg PO Q12HR 30 Days Qty: 60 0RF Xarelto 20 mg Tablet 20 mg PO DAILY@1700 30 Days Qty: 30 0RF potassium chloride [K-Tab] 20 mEq Tablet Extended Release 40 meq PO DAILY@0800 30 Days Qty: 60 0RF furosemide 40 mg tablet 40 mg PO DAILY Qty: 30 0RF Date of admission
--- NOTE | 2022-08-16 11:53 | PC.NURSE ---
Patiented stated that SHE DOES NOT have any valuables locked away in the hospital. She stated she has all of her personal belongings with her.
== END 2022-08-16 12:20 | disposition home or self-care (01) | DRG 308 ==
LOC: ANHED 07:49 → ANHIMU 11:13
PROVIDERS: Physician Assistant; Admitting Provider Chiropractor; Emergency Provider Emergency Medicine; PCP Physician Assistant; Visit Provider Chiropractor
DX: I48.0 Paroxysmal atrial fibrillation (principal); I50.33 Acute on chronic diastolic (congestive) heart failure; E66.2 Morbid (severe) obesity with alveolar hypoventilation; Z68.43 Body mass index [BMI] 50.0-59.9, adult; R09.02 Hypoxemia; E87.6 Hypokalemia; R73.9 Hyperglycemia, unspecified; I51.7 Cardiomegaly; R03.0 Elevated blood-pressure reading, without diagnosis of hypertension; R77.8 Other specified abnormalities of plasma proteins; Z20.822 Contact with and (suspected) exposure to COVID-19; Z91.14 Patient's other noncompliance with medication regimen
CPT/HCPCS: 36415; 71045; 80053; 80061; 83036; 83735; 83880; 84132; 84443; 84484; 85025; 85027; 85610; 85730; 87636; 93005; 93306; 94660; 96365; 96372; 96375; 96376; 99285; A9270; G0378; J1650; J1940

== ENCOUNTER 2022-08-23 13:25 | Observation (INO) | payer BC, SELFPAY ==
[2022-08-23] VITALS (18 sets, daily range): BP systolic 112–133; BP diastolic 72–101; PULSE 64–144; RESP 19–25; TEMP 36.3–36.6; O2SAT 94–99; BMI 45.6
--- NOTE | ~2022-08-23 | XR_ITS ---
EXAMINATION: XR chest 2V DATE: 08/23/2022 14:41 INDICATION: Atrial fibrillation with RVR, dizziness TECHNIQUE: AP and lateral views of the chest are obtained. COMPARISON: 08/14/2022 FINDINGS: There is mild atelectasis of the lung bases. No pleural effusion or pneumothorax. The cardi omediastinal silhouette is normal. There are bridging osteophytes at multiple levels in the spine, co nsistent with diffuse idiopathic skeletal hyperostosis (DISH). IMPRESSION: 1. Mild atelectasis of the lung bases. Reviewed, dictated and finalized at location F. TING FRAME FIXER
--- NOTE | 2022-08-23 14:18 | ECG_ITS ---
Measurements Intervals [place] Rate: 127 P: MN: 0 QRS: -39 QRSD: 98 T: 61 QT: 291 QTc: 424 Interpretive Statements ATRIAL FLUTTER/TACHYCARDIA WITH RAPID VENTRICULAR RESPONSE LEFT AXIS DEVIATION PATTERN CONSISTENT WITH PULMONARY DISEASE CONSIDER INFERIOR INFARCT, AGE INDETERMINATE BORDERLINE ST-T WAVE ABNORMALITY- HIGH LATERAL LEADS BASELINE ARTIFACT- I, II, AVR ABNORMAL ECG COMPARED TO ECG 08/15/2022 14:45:00 ATRIAL FLUTTER/TACHYCARDIA NOW PRESENT Electronically Signed On 08-23-2022 14:40:33 DATA ENTRY SPECIALIST by Reinaldo Domínguez D.O.
[2022-08-23 14:36] LABS: Basophils Absolute Auto 0.1 K/mm3 (0.0-0.1); Basophils Percent Auto 0.9 % (0.2-1.2); Eosinophils Absolute Auto 0.1 K/mm3 (0-0.3); Hemoglobin 15.6 g/dL (12.0-15.0); Immature Granulocyte Absolute 0.02 K/mm3 (0.00-0.031); Immature Granulocyte Percent A 0.2 % (0-0.5); Lymphocytes Absolute Auto 3.07 K/mm3 (0.9-3.2); Lymphocytes Percent Auto 37.8 % (18.3-44.2); Mean Corpuscular HGB Conc 31.8 g/dl (32-36); Mean Corpuscular Hemoglobin 24.6 pg (26-34); Mean Corpuscular Volume 77.4 fl (80-100); Mean Platelet Volume 10.2 fl (7.4-10.4); Monocytes Absolute Auto 0.8 K/mm3 (0.1-0.6); Monocytes Percent Auto 9.7 % (2.6-8.5); Neutrophils Absolute Auto 4.1 K/mm3 (1.3-6.7); Neutrophils Percent Auto 50.4 % (45.5-73.1); Platelet Count Result 355 k/mm3 (150-375); Red Blood Count 6.33 M/mm3 (4.2-5.4); Red Cell Distribution Width 15.9 % (11.5-14.5); White Blood Count 8.1 K/mm3 (4.5-10.0)
[2022-08-23 14:46] LABS: Alanine Aminotransferase 28 U/L (6-35); Albumin Level 4.9 g/dL (3.5-5.1); Alkaline Phosphatase 135 U/L (38-126); Anion Gap 10 mmol/L (8-16); Aspartate Amino Transferase 29 U/L (14-36); Bilirubin,Total 0.6 mg/dL (0.2-1.3); Blood Urea Nitrogen 28 mg/dL (7-17); Calcium 9.9 mg/dL (8.4-10.2); Carbon Dioxide 23 mmol/L (22-30); Chloride 98 mmol/L (98-107); Estimated CRCL calculation 59 ml/min; Estimated Glomerular Filt Rate > 60; Glucose 116 mg/dL (65-110); Potassium 5.4 mmol/L (3.4-5.0); Sodium 131 mmol/L (137-145)
[2022-08-23 14:49] LABS: INR 1.6; Prothrombin Time 18.8 Seconds (11.1-14.7)
[2022-08-23 14:50] LABS: Partial Thromboplastin Time 35.4 SECONDS (22.3-36.8)
[2022-08-23 14:59] LABS: NT Pro B Type Natriuretic Pept 74 pg/mL (19.9-100); Troponin I 0.015 ng/mL (0.000-0.034)
[2022-08-23] MEDS: dilTIAZem HCl INJ 25 MG/5 ML VIAL 10 MG IV PUSH (15:12)
--- NOTE | 2022-08-23 16:15 | ED.GENADULT ---
HPI - General Adult General Chief complaint: Dizziness Stated complaint: shortness of breath Time Seen by Provider: 08/23/22 14:17 History of Present Illness HPI narrative: Patient is a 62-year-old -[place] female who presents ER with heart palpitations and dizziness. Recently admitted for A-fib with RVR and CHF. Has been compliant with home medication. No increased weight or edema. No chest pain or chest pressure. Feels short of breath when she lays back. Patient does feel lightheaded with positional change. Related Data Allergies Allergy/AdvReac Type Severity Reaction Status Date / Time No Known Allergies Allergy Verified 08/23/22 13:40 Review of Systems Review of Systems: All systems reviewed & are unremarkable except as noted in HPI and below Constitutional: Constitutional: Denies chills, Denies fatigue and Denies fever(s) ENT: Denies nasal congestion and Denies sore throat Cardiovascular: Cardiovascular: Denies chest pain, Reports rapid heart rate and Denies radiating jaw, neck or arm pain Comments: Positive orthopnea Respiratory: Respiratory: Denies cough, Reports dyspnea and Denies wheezing Gastrointestinal: Gastrointestinal: Denies abdominal pain, Denies nausea and Denies vomiting Neurologic: Reports dizziness PMFSH Past Medical History Medical History Obstructive sleep apnea Paroxysmal atrial fibrillation Surgical History Surgical History History of hysterectomy History of right knee surgery Family History Family History Mother Family history of arthritis Social History Social History (Updated 08/14/22 @ 15:10 by Beatris Sykes PA-C) Social History: Surrogate medical decision maker: Mabel Marrero, daughter. Code status: Full code. Smoking status: Never smoker Second hand tobacco smoke exposure: No Alcohol intake: current Drinks per week: 5 Alcohol use details: Six beers on the weekends. Substance use: never Substance use type: does not use Lack of Transportation: No Lack of Food: Never True Current Housing: I Have Housing Concerned About Future Housing: No Difficulty Paying Gas/Electric Bills: No Difficulty Paying for Meds: No Currently Unemployed: No Education: High School Diploma/GED Difficulty w/ Childcare or Family Care: No Additional living arrangements comments: Lives alone in [place]. Has 2 grown children. 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 Spiritual care concerns: No Exam Narrative: GENERAL: Well-appearing, well-nourished, and in no acute distress. HEAD: Normocephalic, atraumatic. EYES: PERRL and EOMI. ENT: Mucous membranes moist. CHEST: Clear to auscultation. No respiratory distress. HEART: Irregular rate and rhythm that is tachycardic. Normal peripheral pulses. ABDOMEN: Soft, nontender, nondistended. EXTREMITIES: Normal range of motion. No edema. SKIN: Warm, dry, no rash. NEURO: Alert and oriented x3. PSYCH: Normal mood and affect. Course Course Emergency Course: Poor improvement of rhythm with bolus of diltiazem. Will start on drip and admit for observation. Patient aware of diagnosis and treatment plan and is in agreement. Vital Signs Vital signs: Vital Signs Temperature 97.7 F 08/23/22 13:37 Pulse Rate 73 08/23/22 13:37 Respiratory Rate 20 08/23/22 13:37 Blood Pressure 113/87 08/23/22 13:37 Pulse Oximetry 96 08/23/22 13:37 Oxygen Delivery Room Air 08/23/22 13:37 Temperature 97.7 F 08/23/22 13:37 Pulse Rate 88 08/23/22 17:23 Respiratory Rate 20 08/23/22 13:37 Blood Pressure 121/83 08/23/22 17:23 Pulse Oximetry 96 08/23/22 13:37 Oxygen Delivery Room Air 08/23/22 13:37 Medical Decision Making Vital Signs Vital Signs
--- NOTE | 2022-08-23 17:15 | PM.IMHP ---
H&P: HPI History of Present Illness Date/Time: 08/23/22 17:15 Chief Complaint: Shortness of breath. Narrative: This is a 62-year-old female with with paroxysmal atrial fibrillation and obstructive sleep apnea/obesity hypoventilation syndrome who presented to the emergency department for evaluation of shortness of breath. Patient provides the following history. She is known to myself and the hospitalist service from a recent admission on 08/14/2022 at which time she presented with similar symptoms, found to be in atrial fibrillation with rapid ventricular response. She was seen in consultation by Dr. Roper who was able to see records from her established social science professor. Appeared that she was previously on flecainide and had been non compliant with that and she had also not been compliant with her CPAP. She was started back on flecainide and Xarelto, converted to a sinus rhythm, and was discharged home in a few days. She was tired on discharge but was otherwise feeling okay. A couple of days thereafter she walked downstairs to change out the laundry and when she came up the stairs she once again feeling increasingly short of breath and tired. This has persisted and she came back in today for evaluation, once again noted to be in atrial fibrillation with rapid ventricular response. She was started on diltiazem in the emergency department and she remains on such with improvement in her rate though she is still in atrial fibrillation. She denies syncope, near syncope, chest pain, pleuritic pain, palpitations (occasional fluttering but rarely), nausea, vomiting, and sweats. He has not had any alcohol since discharge. Pertinent labs include a stable, microcytic anemia, sodium 131, potassium 5.4, BUN 28, creatinine 1.10, proBNP 74, troponin 0.015. Review of Systems Constitutional: Comments: Twelve systems were reviewed and are negative except for as per HPI. COUNT INCLUDES THE [facility] Past Medical History Medical History (Updated 08/23/22 @ 23:15 by Beatris Sykes PA-C) Heart failure with preserved ejection fraction Echo in July 2022 showed an EF of 60 to 65% and abnormal diastolic function. Obstructive sleep apnea Paroxysmal atrial fibrillation Surgical History Surgical History History of hysterectomy History of right knee surgery Family History Family History Mother Family history of arthritis Social History Social History Social History: Surrogate medical decision maker: Mabel Marrero, daughter. Code status: Full code. Smoking status: Former smoker Second hand tobacco smoke exposure: No Alcohol intake: current Drinks per week: 2 Alcohol use details: Six beers on the weekends. Substance use: never Substance use type: does not use Lack of Transportation: No Lack of Food: Never True Current Housing: I Have Housing Concerned About Future Housing: No Difficulty Paying Gas/Electric Bills: No Difficulty Paying for Meds: No Currently Unemployed: No Education: High School Diploma/GED Difficulty w/ Childcare or Family Care: No Additional living arrangements comments: Lives alone in [place]. Has 2 grown children. 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 Spiritual care concerns: No Meds Home Medications and Allergies Home Medications Medication Instructions Recorded Confirmed Type flecainide 100 mg tablet 100 mg PO Q12HR 30 days #60 tabs 08/16/22 08/23/22 Rx furosemide 40 mg tablet 40 mg PO DAILY #30 tabs 08/16/22 08/23/22 Rx potassium chloride 20 mEq 40 meq PO DAILY@0800 30 days #60 08/16/22 08/23/22 Rx tablet,extended release (K-Tab) tabs rivaroxaban 20 mg tablet (Xarelto) 20 mg PO DAILY@1700 30 days #30 08/16/22 08/23/22 Rx tabs Allergies Allergy/AdvReac T
[2022-08-23] MEDS: dilTIAZem 100 MG/100 ML 100 MG/100 ML BAG IV CONT (17:23)
[2022-08-23] MEDS: RIVAROXABAN 20 MG TABLET PO (17:25)
--- NOTE | 2022-08-23 20:28 | ADMGEN ---
This patient, Lis Lazaro, was admitted to IMU Room 205-02. Patient/family oriented to hospital policies and general routines including ID bracelet, bed and alarms, visiting hours, pain management, procedures, bathroom and other care routines, personal items, smoking policy, room service/diet, and visiting hours. Information on how to activate the Rapid Response Team has been discussed. Patient/Family are encouraged to report perceived risks to care and to ask questions if they do not understand what they are told or what they should do.
[2022-08-23] MEDS: SODIUM CHLORIDE 0.9% IV 500 ML IV CONT (23:33)
[2022-08-23] MEDS: FLECAINIDE ACETATE 100 MG TABLET PO (23:33)
[2022-08-24] VITALS (15 sets, daily range): BP systolic 99–140; BP diastolic 61–80; PULSE 53–116; RESP 16–20; TEMP 36.2–36.9; O2SAT 96–99
[2022-08-24 04:35] LABS: Anion Gap 9 mmol/L (8-16); Blood Urea Nitrogen 28 mg/dL (7-17); Calcium 9.4 mg/dL (8.4-10.2); Carbon Dioxide 23 mmol/L (22-30); Chloride 100 mmol/L (98-107); Estimated CRCL calculation 64 ml/min; Estimated Glomerular Filt Rate > 60; Glucose 112 mg/dL (65-110); Magnesium 2.4 mg/dL (1.6-2.3); Potassium 4.9 mmol/L (3.4-5.0); Sodium 132 mmol/L (137-145)
[2022-08-24] MEDS: FLECAINIDE ACETATE 100 MG TABLET PO ×2 (08:47→20:48)
--- NOTE | 2022-08-24 12:58 | PM.CNCAR ---
Assessment and Plan Assessment and plan (1) Atrial fibrillation with rapid ventricular response: Code(s): I48.91 - Unspecified atrial fibrillation Status: Acute Assessment and Plan: Back in sinus rhythm. Continue with Flecainide and Xarelto. Patient to follow up with her primary roadway engineer after discharge. (2) Morbid obesity with BMI of 45.0-49.9, adult: Code(s): E66.01 - Morbid (severe) obesity due to excess calories; Z68.42 - Body mass index [BMI] 45.0-49.9, adult Status: Acute (3) Obstructive sleep apnea: Code(s): G47.33 - Obstructive sleep apnea (adult) (pediatric) Status: Acute Assessment and Plan: Needs to wear her CPAP. History of Present Illness History of Present Illness Consult date/time: 08/24/22 12:58 Requesting physician: Steph Arita DO Consult reason: atrial fibrillation Reason For Visit: afib rvr Narrative: We are consulted for atrial fibrillation with RVR. This is a 62-year-old female with known history of atrial fibrillation on Flecainide and Xarelto. Follows with [facility] as her cardiology team. She also has a history of RANCHO. Patient presented with shortness of breath. Found to be in atrial fibrillation with RVR in the ER. Patient started on Diltiazem drip, which has now been discontinued. Home dose of Flecainide restarted. Patient currently in sinus rhythm. Review of Systems Review of Systems: All systems reviewed & are unremarkable except as noted in HPI and below (HPI) [facility] Past Medical History Medical History Heart failure with preserved ejection fraction Echo in July 2022 showed an EF of 60 to 65% and abnormal diastolic function. Obstructive sleep apnea Paroxysmal atrial fibrillation Surgical History Surgical History History of hysterectomy History of right knee surgery Family History Family History Mother Family history of arthritis Social History Social History Social History: Surrogate medical decision maker: Mabel Weissjosé luisl, daughter. Code status: Full code. Smoking status: Former smoker Second hand tobacco smoke exposure: No Alcohol intake: current Drinks per week: 2 Alcohol use details: Six beers on the weekends. Substance use: never Substance use type: does not use Lack of Transportation: No Lack of Food: Never True Current Housing: I Have Housing Concerned About Future Housing: No Difficulty Paying Gas/Electric Bills: No Difficulty Paying for Meds: No Currently Unemployed: No Education: High School Diploma/GED Difficulty w/ Childcare or Family Care: No Additional living arrangements comments: Lives alone in [place]. Has 2 grown children. 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 Spiritual care concerns: No Meds Home Medications and Allergies Home Medications Medication Instructions Recorded Confirmed Type flecainide 100 mg tablet 100 mg PO Q12HR 30 days #60 tabs 08/16/22 08/23/22 Rx furosemide 40 mg tablet 40 mg PO DAILY #30 tabs 08/16/22 08/23/22 Rx potassium chloride 20 mEq 40 meq PO DAILY@0800 30 days #60 08/16/22 08/23/22 Rx tablet,extended release (K-Tab) tabs rivaroxaban 20 mg tablet (Xarelto) 20 mg PO DAILY@1700 30 days #30 08/16/22 08/23/22 Rx tabs Allergies Allergy/AdvReac Type Severity Reaction Status Date / Time No Known Allergies Allergy Verified 08/23/22 13:40 Vital Signs Vital Signs - 24 hr 08/23/22 13:37 08/23/22 17:23 08/23/22 19:37 Temperature 36.5 C Pulse Rate 73 88 126 H Respiratory Rate 20 Blood Pressure 113/87 121/83 130/77 Pulse Oximetry 96 Oxygen Delivery Room Air 08/23/22 19:00 08/23/22 19:01 08/23/22 19:15 Tempera
[2022-08-24] MEDS: RIVAROXABAN 20 MG TABLET PO (17:09)
--- NOTE | 2022-08-24 17:17 | PM.IMPN ---
Progress Note: A&P Assessment and Plan (1) Atrial flutter with rapid ventricular response: Code(s): I48.92 - Unspecified atrial flutter Status: Acute (2) Electrolyte abnormality: Code(s): E87.8 - Other disorders of electrolyte and fluid balance, not elsewhere classified Status: Acute (3) Increase in serum creatinine from prior measurement: Code(s): R79.89 - Other specified abnormal findings of blood chemistry Status: Acute (4) Obstructive sleep apnea: Code(s): G47.33 - Obstructive sleep apnea (adult) (pediatric) Status: Acute (5) Heart failure with preserved ejection fraction: Code(s): I50.30 - Unspecified diastolic (congestive) heart failure Status: Acute Plan patient presented with shortness of breath And found to be in atrial fibrillation with rapid ventricular response. She states compliance with her home medications and CPAP. She was started on a diltiazem drip in the emergency department. diltiazem drip has been discontinued and patient has been restarted on home flecainide. She has converted to sinus rhythm. Will continue home Xarelto for stroke prophylaxis. Appreciate cardiology consultation. Continue home CPAP overnight. Electrolytes are within normal limits. Renal function has returned to baseline. Blood pressures were stable. Continue to monitor on telemetry overnight. Hopeful discharge tomorrow if continued improvement. Patient can be downgraded to medical floor with telemetry given her improvement Subjective Date/time seen: 08/24/22 17:17 Interval history: date of service: 08/24/2022 Lis Lazaro is a 62-year-old female with a history of HFrEF, RANCHO, paroxysmal atrial fibrillation who is seen in follow-up for atrial fibrillation with rapid ventricular response. Patient reports that she can feel her heart dancing and to feeling in her chest. At rest she feels more comfortable when she gets up she feels dizzy and short of breath And she notices her heart pounding more. She denies lightheadedness. Endorses nausea but no vomiting. Denies chest pain. Review of Systems Review of Systems: All systems reviewed & are unremarkable except as noted in HPI and below Exam Narrative: General: Well-nourished, well-appearing 62-year-old female, sitting up in bed, comfortable, NARD Neuro: awake, alert and oriented x4, speech clear, no focal neuro deficits noted HEENMT: normocephalic, atraumatic, EOMI, sclerae anicteric, moist oral mucosa Respiratory: clear to auscultation bilaterally, nonlabored breathing Cardio: regular rate, regular rhythm with S1-S2 Abdomen: nondistended, normoactive bowel sounds, soft, nontender to palpation Extremities: no edema, erythema, or tenderness to palpation, DP pulses 2+ bilaterally Skin: no rashes or lesions, warm and dry Psych: appropriate mood and affect, judgment and insight intact Objective Data Vital Signs Vital Signs: Vital Signs - 24 hr 08/23/22 17:23 08/23/22 19:37 08/23/22 19:00 Temperature Pulse Rate 88 126 H 127 H Respiratory Rate 20 Blood Pressure 121/83 130/77 Pulse Oximetry 96 Oxygen Delivery 08/23/22 19:01 08/23/22 19:15 08/23/22 19:16 Temperature Pulse Rate 124 H 111 H 131 H Respiratory Rate 24 H 25 H 20 Blood Pressure 133/101 H 121/80 Pulse Oximetry 95 94 95 Oxygen Delivery 08/23/22 19:30 08/23/22 19:32 08/23/22 19:45 Temperature Pulse Rate 132 H 122 H 119 H Respiratory Rate 20 21 H 19 Blood Pressure 130/77 Pulse Oximetry 97 94 95 Oxygen Delivery 08/23/22 20:00 08/23/22 20:10 08/23/22 20:07 Temperature 97.3 F L Pulse Rate 119 H 140 H 144 H Respiratory Rate 19 20 Blood Pressure 131/88 Pulse Oximetry 95 98 Oxygen Delivery Room Air 08/23/22 22:00 08/23/22 23:04 08/23/22 23:33 Temperature 97.8 F Pulse Rate 114 H 64 119 H Respiratory Rate 20 Blood Pressure 112/72 Pulse Oximetry 99 Oxygen Delivery
--- NOTE | 2022-08-24 21:59 | PC.NURSE ---
This patient, Lis Lazaro, was transferred to [[id number]] on 08/24/22 at 2159. Personal belongings sent with patient. Report given to [MARY Pearson]. Appropriate documentation sent with patient.
[2022-08-25] VITALS (14 sets, daily range): BP systolic 109–146; BP diastolic 57–101; PULSE 61–140; RESP 18–21; TEMP 36.2–36.8; O2SAT 94–100
[2022-08-25] MEDS: MELATONIN 5 MG TABLET PO (00:08)
[2022-08-25 05:36] LABS: Hematocrit 42.2 % (37.0-47.0); Hemoglobin 13.4 g/dL (12.0-15.0); Mean Corpuscular HGB Conc 31.8 g/dl (32-36); Mean Corpuscular Hemoglobin 25.2 pg (26-34); Mean Corpuscular Volume 79.5 fl (80-100); Platelet Count Result 301 k/mm3 (150-375); Red Blood Count 5.31 M/mm3 (4.2-5.4); Red Cell Distribution Width 14.9 % (11.5-14.5); White Blood Count 6.6 K/mm3 (4.5-10.0)
[2022-08-25 06:00] LABS: Anion Gap 7 mmol/L (8-16); Blood Urea Nitrogen 21 mg/dL (7-17); Calcium 9.1 mg/dL (8.4-10.2); Carbon Dioxide 27 mmol/L (22-30); Chloride 97 mmol/L (98-107); Estimated CRCL calculation 64 ml/min; Estimated Glomerular Filt Rate > 60; Glucose 109 mg/dL (65-110); Magnesium 2.3 mg/dL (1.6-2.3); Potassium 4.4 mmol/L (3.4-5.0); Sodium 131 mmol/L (137-145)
[2022-08-25] MEDS: FLECAINIDE ACETATE 100 MG TABLET PO ×2 (08:25→17:58)
--- NOTE | 2022-08-25 16:27 | PM.IMPN ---
Progress Note: A&P Assessment and Plan (1) Atrial flutter with rapid ventricular response: Code(s): I48.92 - Unspecified atrial flutter Status: Acute Assessment and Plan: patient presented with shortness of breath and found to be in atrial fibrillation with rapid ventricular response. She states compliance with her home medications and CPAP. She was started on a diltiazem drip in the emergency department. diltiazem drip discontinued on 08/24 Continue home flecainide Patient has converted to sinus rhythm but remains symptomatic continue home Xarelto monitor on telemetry Appreciate cardiology consultation. (2) Palpitations: Code(s): R00.2 - Palpitations Status: Acute Assessment and Plan: patient continues to endorse palpitations despite converting to sinus rhythm etiology for this is unclear she does endorse dizziness and lightheadedness. Check orthostatics recent echo from to 08/14/22 was unremarkable, no wall motion abnormalities, no significant valvular disease electrolytes are within normal limits most recent TSH is within normal limits check B12 and folate may be related to stress / anxiety /caffeine. monitor (3) Electrolyte abnormality: Code(s): E87.8 - Other disorders of electrolyte and fluid balance, not elsewhere classified Status: Resolved Assessment and Plan: resolved (4) Increase in serum creatinine from prior measurement: Code(s): R79.89 - Other specified abnormal findings of blood chemistry Status: Acute Assessment and Plan: creatinine slightly elevated at 1.1 on presentation. Resolved. Creatinine 1.0 today (5) Obstructive sleep apnea: Code(s): G47.33 - Obstructive sleep apnea (adult) (pediatric) Status: Acute Assessment and Plan: continue home CPAP (6) Heart failure with preserved ejection fraction: Code(s): I50.30 - Unspecified diastolic (congestive) heart failure Status: Acute Assessment and Plan: most recent EF 60-65% clinically compensated at this time Subjective Date/time seen: 08/25/22 16:27 Interval history: date of service: 08/25/2022 Lis Lazaro is a 62-year-old female with a history of HFrEF, RANCHO, paroxysmal atrial fibrillation who is seen in follow-up for atrial fibrillation with rapid ventricular response. She converted back to sinus rhythm but she continues to feel symptomatic. She feels that her chest is vibrating. She feels dizzy and lightheaded. She denies shortness of breath. Denies chest pain. No nausea or vomiting. Tolerating her diet. States that she can feel her heart pounding in her head in her years. Review of Systems Review of Systems: All systems reviewed & are unremarkable except as noted in HPI and below Exam Narrative: General: Well-nourished, well-appearing 62-year-old female, sitting up in bed, comfortable, NARD Neuro: awake, alert and oriented x4, speech clear, no focal neuro deficits noted HEENMT: normocephalic, atraumatic, EOMI, sclerae anicteric, moist oral mucosa Respiratory: clear to auscultation bilaterally, nonlabored breathing Cardio: regular rate, regular rhythm with S1-S2 Abdomen: nondistended, normoactive bowel sounds, soft, nontender to palpation Extremities: no edema, erythema, or tenderness to palpation, DP pulses 2+ bilaterally Skin: no rashes or lesions, warm and dry Psych: appropriate mood and affect, judgment and insight intact Objective Data Vital Signs Vital Signs: Vital Signs - 24 hr 08/24/22 18:00 08/24/22 20:00 08/24/22 20:00 Temperature 97.4 F L Pulse Rate 74 71 71 Respiratory Rate 16 16 Blood Pressure 112/80 Pulse Oximetry 99 99 Oxygen Delivery Room Air 08/24/22 20:48 08/24/22 20:00 08/24/22 22:00 Temperature Pulse Rate 68 76 69 Respiratory Rate Blood Pressure Pulse Oximetry Oxygen Delivery 08/24/22 23:
[2022-08-25] MEDS: RIVAROXABAN 20 MG TABLET PO (17:09)
[2022-08-25] MEDS: METOPROLOL TARTRATE INJ 5 MG/5 ML VIAL IV PUSH (19:11)
[2022-08-26] VITALS (10 sets, daily range): BP systolic 116–141; BP diastolic 69–80; PULSE 58–67; RESP 20; TEMP 36.2–36.6; O2SAT 97–98
[2022-08-26 05:59] LABS: Hematocrit 40.1 % (37.0-47.0); Hemoglobin 12.5 g/dL (12.0-15.0); Mean Corpuscular HGB Conc 31.2 g/dl (32-36); Mean Corpuscular Hemoglobin 24.5 pg (26-34); Mean Corpuscular Volume 78.6 fl (80-100); Mean Platelet Volume 10.7 fl (7.4-10.4); Platelet Count Result 303 k/mm3 (150-375); Red Cell Distribution Width 14.7 % (11.5-14.5); White Blood Count 7.3 K/mm3 (4.5-10.0)
[2022-08-26 06:08] LABS: Alanine Aminotransferase 19 U/L (6-35); Albumin Level 3.8 g/dL (3.5-5.1); Alkaline Phosphatase 84 U/L (38-126); Anion Gap 5 mmol/L (8-16); Aspartate Amino Transferase 21 U/L (14-36); Bilirubin,Total 0.4 mg/dL (0.2-1.3); Blood Urea Nitrogen 18 mg/dL (7-17); Calcium 8.8 mg/dL (8.4-10.2); Carbon Dioxide 28 mmol/L (22-30); Chloride 103 mmol/L (98-107); Estimated CRCL calculation 71 ml/min; Estimated Glomerular Filt Rate > 60; Glucose 112 mg/dL (65-110); Sodium 136 mmol/L (137-145)
[2022-08-26 07:13] LABS: Folic Acid 12.1 ng/mL (2.76->20)
[2022-08-26] MEDS: FLECAINIDE ACETATE 100 MG TABLET PO (08:27)
[2022-08-26] MEDS: DOCUSATE SODIUM 100 MG CAPSULE PO (08:27)
--- NOTE | 2022-08-26 11:44 | PM.DS ---
DS: Admitting Diagnosis Discharge Date 08/26/2022 Admitting Diagnosis atrial fibrillation with rapid ventricular response DS: Discharge Diagnosis Discharge Diagnosis (1) Atrial flutter with rapid ventricular response: Code(s): I48.92 - Unspecified atrial flutter Status: Acute Assessment and Plan: patient presented with shortness of breath and found to be in atrial fibrillation with rapid ventricular response. reported compliance with her home medications and CPAP. seen in consultation by cardiology she was started on a diltiazem drip in the emergency department. diltiazem drip discontinued on 08/24 pt converted to normal sinus rhythm continue home flecainide continue home Xarelto monitored on telemetry during admission outpatient follow up with her rn x ray scheduled on 08/27/22 (2) Palpitations: Code(s): R00.2 - Palpitations Status: Resolved Assessment and Plan: patient endorsed palpitations despite converting to sinus rhythm etiology unclear orthostatics negative recent echo from to 08/14/22 was unremarkable, no wall motion abnormalities, no significant valvular disease electrolytes within normal limits most recent TSH within normal limits may be related to stress / anxiety /caffeine. Symptoms resolved (3) Electrolyte abnormality: Code(s): E87.8 - Other disorders of electrolyte and fluid balance, not elsewhere classified Status: Resolved Assessment and Plan: resolved (4) Increase in serum creatinine from prior measurement: Code(s): R79.89 - Other specified abnormal findings of blood chemistry Status: Acute Assessment and Plan: creatinine slightly elevated at 1.1 on presentation. Resolved. Creatinine 0.9 at time of discharge (5) Obstructive sleep apnea: Code(s): G47.33 - Obstructive sleep apnea (adult) (pediatric) Status: Acute Assessment and Plan: continue home CPAP (6) Heart failure with preserved ejection fraction: Code(s): I50.30 - Unspecified diastolic (congestive) heart failure Status: Acute Assessment and Plan: most recent EF 60-65% clinically compensated DS: Summary Hospital Course Hospital Course: date of admission: 08/23/2022 date of discharge: 08/26/2022 Lis washington is a 62-year-old female with a history of HFrEF, RANCHO, paroxysmal atrial fibrillation on systemic anticoagulation who presented to the emergency department on 08/23/2022 with complaints of palpitations and dizziness. She had recently been hospitalized for atrial fibrillation with rapid ventricular response. On presentation to the emergency department, her EKG showed atrial flutter with heart rate of 127, additional vital signs were stable, potassium was slightly elevated at 5.4 and creatinine was up from baseline at 1.1, CXR showed no acute findings. She was started on a Cardizem drip and was admitted to the hospitalist service for further evaluation and management. She was seen in consultation by cardiology. Please see above for further details. Cardizem drip was discontinued and patient was restarted on home flecainide. She converted to sinus rhythm. Her symptoms improved and she felt comfortable with plans for discharge home. She has an appointment with her rn x ray tomorrow that she is eager to attend. Discussed with the patient worrisome signs and symptoms for which to return and she was educated on her medications. She was discharged in hemodynamically stable condition on 08/26/2022. Time Spent with Patient Time attestation: Total time spent providing and/or coordinating discharge services: 45 minutes Time spent: Greater than 30 minutes Exam Narrative: General: well-nourished, well-appearing 62-year-old female, sitting up in bed, comfortable, NARD Neuro: awake, alert and oriented x4, speech clear, no focal neuro deficits noted HEENMT: nor
== END 2022-08-26 13:53 | disposition home or self-care (01) ==
LOC: ANHED 18:16 → ANHIMU 19:57 → ANH3MED 08-25 15:54 → ANHIMU 08-27 11:26
PROVIDERS: Physician Assistant; Admitting Provider Hospitalist; Emergency Provider Emergency Medicine; PCP Physician Assistant; Visit Provider Physician Assistant
DX: I48.92 Unspecified atrial flutter (principal); R00.2 Palpitations; E87.8 Other disorders of electrolyte and fluid balance, not elsewhere classified; R79.89 Other specified abnormal findings of blood chemistry; G47.33 Obstructive sleep apnea (adult) (pediatric); Z99.89 Dependence on other enabling machines and devices; I50.30 Unspecified diastolic (congestive) heart failure; R42 Dizziness and giddiness; R06.02 Shortness of breath; F10.90 Alcohol use, unspecified, uncomplicated; R94.31 Abnormal electrocardiogram [ECG] [EKG]; J98.11 Atelectasis; R00.1 Bradycardia, unspecified; E66.01 Morbid (severe) obesity due to excess calories; Z68.42 Body mass index [BMI] 45.0-49.9, adult; Z87.891 Personal history of nicotine dependence; Z79.01 Long term (current) use of anticoagulants; Z79.899 Other long term (current) drug therapy
CPT/HCPCS: 36415; 71046; 80048; 80053; 82607; 82746; 83735; 83880; 84484; 85025; 85027; 85610; 85730; 93005; 94002; 94660; 96360; 96365; 96366; 96374; 96376; 99285; A9270; G0378; J7040

== ENCOUNTER 2022-08-29 05:06 | Emergency (ER) | payer BC, SELFPAY ==
[2022-08-29] VITALS (8 sets, daily range): BP systolic 96–122; BP diastolic 64–87; PULSE 64–115; RESP 16–20; O2SAT 96–99
--- NOTE | ~2022-08-29 | XR_ITS ---
EXAMINATION: XR chest 2V DATE: 08/29/2022 06:31 INDICATION: Chest palpitations TECHNIQUE: PA and lateral views of the chest were obtained. COMPARISON: Chest radiograph dated 08/23/2022 FINDINGS: Again seen is mild streaky atelectasis at the bilateral lung bases. No pulmonary edema, pleural effus ion or pneumothorax. Borderline heart size. IMPRESSION: 1. Borderline heart size and mild bibasilar atelectasis. Reviewed, dictated and finalized at location A. I SKILLED OPERATOR
--- NOTE | 2022-08-29 05:11 | ECG_ITS ---
Measurements Intervals [place] Rate: 93 P: 246 FL: 200 QRS: 2 QRSD: 107 T: 77 QT: 342 QTc: 427 Interpretive Statements ATRIAL FLUTTER/TACHYCARDIA DELAYED PRECORDIAL R/S TRANSITION ABNORMAL ECG COMPARED TO ECG 08/23/2022 14:20:56 HEART RATE HAS DECREASED Electronically Signed On 08-29-2022 6:59:02 ELECTRICITY TRADER by Reinaldo Domínguez D.O.
[2022-08-29 05:35] LABS: Basophils Absolute Auto 0.1 K/mm3 (0.0-0.1); Basophils Percent Auto 0.6 % (0.2-1.2); Eosinophils Absolute Auto 0.1 K/mm3 (0-0.3); Eosinophils Percent Auto 1.5 % (0-4.4); Hematocrit 41.8 % (37.0-47.0); Hemoglobin 13.1 g/dL (12.0-15.0); Immature Granulocyte Absolute 0.01 K/mm3 (0.00-0.031); Immature Granulocyte Percent A 0.1 % (0-0.5); Lymphocytes Absolute Auto 3.14 K/mm3 (0.9-3.2); Lymphocytes Percent Auto 39.3 % (18.3-44.2); Mean Corpuscular HGB Conc 31.3 g/dl (32-36); Mean Corpuscular Hemoglobin 24.8 pg (26-34); Mean Corpuscular Volume 79.2 fl (80-100); Mean Platelet Volume 10.8 fl (7.4-10.4); Monocytes Absolute Auto 0.6 K/mm3 (0.1-0.6); Neutrophils Percent Auto 50.5 % (45.5-73.1); Platelet Count Result 311 k/mm3 (150-375); Red Blood Count 5.28 M/mm3 (4.2-5.4); Red Cell Distribution Width 15.1 % (11.5-14.5)
[2022-08-29 05:44] LABS: INR 1.8; Prothrombin Time 19.8 Seconds (11.1-14.7)
[2022-08-29 05:45] LABS: Partial Thromboplastin Time 29.1 SECONDS (22.3-36.8)
--- NOTE | 2022-08-29 06:19 | ED.GENADULT ---
HPI - General Adult General Chief complaint: Arrhythmia/Palpitations <Ranjith Hidalgo MD - Last Filed: 08/29/22 06:21> Stated complaint: Afib <Ranjith Hidalgo MD - Last Filed: 08/29/22 06:21> Time Seen by Provider: 08/29/22 06:04 <Ranjith Hidalgo MD - Last Filed: 08/29/22 06:21> History of Present Illness HPI narrative: Patient is a 62-year-old female who presents the emergency department with chief complaint of palpitations. Patient reports she has history of A-fib and is currently on flecainide the patient was admitted to the hospital recently and was treated with a Cardizem drip the patient has been taking her p.o. flecainide and reports that this evening she popped into A-fib and is felt as though her heart is been beating extremely fast and irregular. Patient denies chest pain and reports that she has been compliant with her medications including her anticoagulant of Xarelto <Ranjith Hidalgo MD - Last Filed: 08/29/22 06:21> Related Data Allergies/adverse reactions: Allergies Allergy/AdvReac Type Severity Reaction Status Date / Time No Known Allergies Allergy Verified 08/29/22 05:31 <Ranjith Hidalgo MD - Last Filed: 08/29/22 06:21> Review of Systems Review of Systems: A 10 system review of systems was completed on the patient and is negative except for what is stated in the HPI. Nursing and ancillary documentation was reviewed. <Ranjith Hidalgo MD - Last Filed: 08/29/22 06:21> [facility] Past Medical History Medical History: Medical History Heart failure with preserved ejection fraction Echo in July 2022 showed an EF of 60 to 65% and abnormal diastolic function. Obstructive sleep apnea Paroxysmal atrial fibrillation <Ranjith Hidalgo MD - Last Filed: 08/29/22 06:21> Surgical History Surgical History: Surgical History History of hysterectomy History of right knee surgery <Ranjith Hidalgo MD - Last Filed: 08/29/22 06:21> Family History Family History: Family History Mother Family history of arthritis <Ranjith Hidalgo MD - Last Filed: 08/29/22 06:21> Social History Social History: Social History Social History: Surrogate medical decision maker: Mabel Marrero, daughter. Code status: Full code. Smoking status: Former smoker Second hand tobacco smoke exposure: No Alcohol intake: current Drinks per week: 2 Alcohol use details: Six beers on the weekends. Substance use: never Substance use type: does not use Lack of Transportation: No Lack of Food: Never True Current Housing: I Have Housing Concerned About Future Housing: No Difficulty Paying Gas/Electric Bills: No Difficulty Paying for Meds: No Currently Unemployed: No Education: High School Diploma/GED Difficulty w/ Childcare or Family Care: No Additional living arrangements comments: Lives alone in [place]. Has 2 grown children. 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 Spiritual care concerns: No <Ranjith Hidalgo MD - Last Filed: 08/29/22 06:21> Exam Narrative: GENERAL: Well-appearing, well-nourished, and in no acute distress. HEAD: Normocephalic, atraumatic. EYES: PERRLA and EOMI. ENT: Nares clear, no rhinorrhea or epistaxis. Mucous membranes moist. NECK: Supple. CHEST: Clear to auscultation. No respiratory distress. HEART: Irregular rate and rhythm. No murmur heard. Normal peripheral pulses. ABDOMEN: Soft, nontender, nondistended, normal active bowel sounds. EXTREMITIES: Normal range of motion. No edema. SKIN: Warm, dry, no rash. NEURO: No focal deficits. Alert and o
[2022-08-29 06:21] LABS: Lipase 83 U/L (23-300); Troponin I 0.018 ng/mL (0.000-0.034)
[2022-08-29] MEDS: dilTIAZem HCl INJ 25 MG/5 ML VIAL 10 MG IV PUSH (06:30)
--- NOTE | 2022-08-29 06:41 | PC.NURSE ---
Attempted to draw green top for CMP but was unsuccessful. Pt refuses anymore needle sticks. Lab has been notified.
[2022-08-29 08:10] LABS: Alanine Aminotransferase 17 U/L (6-35); Albumin Level 3.9 g/dL (3.5-5.1); Alkaline Phosphatase 102 U/L (38-126); Anion Gap 5 mmol/L (8-16); Aspartate Amino Transferase 21 U/L (14-36); Bilirubin,Total 0.4 mg/dL (0.2-1.3); Blood Urea Nitrogen 19 mg/dL (7-17); Calcium 9.2 mg/dL (8.4-10.2); Carbon Dioxide 25 mmol/L (22-30); Chloride 102 mmol/L (98-107); Estimated CRCL calculation 71 ml/min; Estimated Glomerular Filt Rate > 60; Glucose 99 mg/dL (65-110); Potassium 4.3 mmol/L (3.4-5.0); Sodium 132 mmol/L (137-145)
[2022-08-29 08:20] LABS: Troponin I 0.013 ng/mL (0.000-0.034)
--- NOTE | 2022-08-29 08:20 | ECG_ITS ---
Measurements Intervals [place] Rate: 79 P: NM: 0 QRS: -2 QRSD: 99 T: 80 QT: 394 QTc: 453 Interpretive Statements ATRIAL FLUTTER/TACHYCARDIA DELAYED PRECORDIAL R/S TRANSITION ABNORMAL ECG COMPARED TO ECG 08/29/2022 05:14:48 NO SIGNIFICANT CHANGES Electronically Signed On 08-29-2022 12:30:58 STARCH DUMPER by Reinaldo Domínguez D.O.
== END 2022-08-29 09:30 | disposition home or self-care (01) ==
PROVIDERS: Emergency Provider Emergency Medicine; PCP Physician Assistant
DX: I48.92 Unspecified atrial flutter (principal); I48.91 Unspecified atrial fibrillation; I50.9 Heart failure, unspecified; G47.30 Sleep apnea, unspecified
CPT/HCPCS: 36415; 71046; 80053; 83690; 83735; 84484; 85025; 85610; 85730; 93005; 96374; 99284

== ENCOUNTER 2022-09-18 09:58 | Outpatient (CLI) | payer BC, SELFPAY ==
[2022-09-18 10:35] LABS: Anion Gap 9 mmol/L (8-16); Blood Urea Nitrogen 19 mg/dL (7-17); Carbon Dioxide 24 mmol/L (22-30); Chloride 102 mmol/L (98-107); Estimated Glomerular Filt Rate > 60; Glucose 100 mg/dL (65-110); Potassium 4.6 mmol/L (3.4-5.0); Sodium 135 mmol/L (137-145)
== END 2022-09-18 09:59 | disposition home or self-care (01) ==
LOC: ANHLAB 10:00
PROVIDERS: PCP Physician Assistant; Visit Provider Physician Assistant
DX: E87.6 Hypokalemia (principal)
CPT/HCPCS: 36415; 80048

== ENCOUNTER 2022-10-05 21:30 | Inpatient (IN) | payer BC, SELFPAY ==
[2022-10-05] VITALS (15 sets, daily range): BP systolic 101–168; BP diastolic 60–96; PULSE 47–64; RESP 14–26; O2SAT 92–100
--- NOTE | ~2022-10-05 | XR_ITS ---
XR chest 1V portable 10/05/2022 22:21 Indication: Chest palpitations Procedure: AP portable chest Comparison: Comparison to multiple prior studies sequentially, with oldest reviewed study dated 01/06. Findings: Cardiomegaly. Mild interstitial edema. No pleural effusion or pneumothorax. No acute osseou s abnormality. Impression: 1: Cardiomegaly with mild interstitial edema. Reviewed, dictated and finalized at location A. Impression: 1: Cardiomegaly with mild interstitial edema.
--- NOTE | 2022-10-05 21:37 | ECG_ITS ---
Measurements Intervals [place] Rate: 65 P: 177 TX: 213 QRS: 198 QRSD: 87 T: 136 QT: 387 QTc: 403 Interpretive Statements SINUS RHYTHM WITH FIRST DEGREE AV BLOCK ARM LEADS REVERSED [INVERTED P AND QRS IN I] COMPARED TO ECG 08/29/2022 08:28:08 SINUS RHYTHM REPLACES ATRIAL FLUTTER Electronically Signed On 10-06-2022 7:08:34 CDT by Ross Roper M.D.
[2022-10-05 22:08] LABS: Basophils Percent Auto 0.4 % (0.2-1.2); Eosinophils Absolute Auto 0.1 K/mm3 (0-0.3); Eosinophils Percent Auto 1.2 % (0-4.4); Hematocrit 43.4 % (37.0-47.0); Hemoglobin 13.8 g/dL (12.0-15.0); Immature Granulocyte Absolute 0.02 K/mm3 (0.00-0.031); Immature Granulocyte Percent A 0.2 % (0-0.5); Lymphocytes Absolute Auto 4.59 K/mm3 (0.9-3.2); Lymphocytes Percent Auto 49.1 % (18.3-44.2); Mean Corpuscular HGB Conc 31.8 g/dl (32-36); Mean Corpuscular Hemoglobin 24.9 pg (26-34); Mean Corpuscular Volume 78.3 fl (80-100); Mean Platelet Volume 11.1 fl (7.4-10.4); Monocytes Absolute Auto 0.7 K/mm3 (0.1-0.6); Monocytes Percent Auto 7.4 % (2.6-8.5); Neutrophils Absolute Auto 3.9 K/mm3 (1.3-6.7); Neutrophils Percent Auto 41.7 % (45.5-73.1); Platelet Count Result 307 k/mm3 (150-375); Red Blood Count 5.54 M/mm3 (4.2-5.4); Red Cell Distribution Width 15.1 % (11.5-14.5); White Blood Count 9.4 K/mm3 (4.5-10.0)
[2022-10-05 22:21] LABS: Alanine Aminotransferase 15 U/L (6-35); Albumin Level 4.6 g/dL (3.5-5.1); Alkaline Phosphatase 109 U/L (38-126); Anion Gap 7 mmol/L (8-16); Aspartate Amino Transferase 22 U/L (14-36); Bilirubin,Total 0.5 mg/dL (0.2-1.3); Blood Urea Nitrogen 19 mg/dL (7-17); Calcium 9.7 mg/dL (8.4-10.2); Carbon Dioxide 27 mmol/L (22-30); Chloride 105 mmol/L (98-107); Estimated CRCL calculation 79 ml/min; Estimated Glomerular Filt Rate > 60; Glucose 106 mg/dL (65-110); Magnesium 2.1 mg/dL (1.6-2.3); Phosphorus 4.6 mg/dL (2.5-4.5); Potassium 4.5 mmol/L (3.4-5.0); Sodium 139 mmol/L (137-145)
[2022-10-05 22:24] LABS: INR 1.9; Prothrombin Time 20.8 Seconds (11.1-14.7)
[2022-10-05 22:25] LABS: Partial Thromboplastin Time 39.5 SECONDS (22.3-36.8)
[2022-10-05 22:30] LABS: NT Pro B Type Natriuretic Pept 656 pg/mL (19.9-100)
[2022-10-05 22:33] LABS: Troponin I 0.013 ng/mL (0.000-0.034)
--- NOTE | 2022-10-05 23:38 | ED.GENADULT ---
HPI - General Adult General Chief complaint: Arrhythmia/Palpitations Stated complaint: Dizziness Time Seen by Provider: 10/05/22 21:58 History of Present Illness HPI narrative: This is a 62-year-old female who came to the ED for intermittent episodes of dizziness throughout the day. While the patient was triaged she went into a sinus pause and loss consciousness. She was wheeled back emergently and was found to be and AFib with multiple PVCs and a heart rate of approximately 38. the the patient auto converted back to normal sinus rhythm with complete resolution of her symptoms. At this time the patient is denying any other complaints. She has been compliant with her foot flecainide although she has not started her CPAP is not arrived at her house yet. Related Data Allergies Allergy/AdvReac Type Severity Reaction Status Date / Time No Known Allergies Allergy Verified 08/29/22 05:31 [facility] Past Medical History Medical History Heart failure with preserved ejection fraction Echo in July 2022 showed an EF of 60 to 65% and abnormal diastolic function. Obstructive sleep apnea Paroxysmal atrial fibrillation Surgical History Surgical History History of hysterectomy History of right knee surgery Family History Family History Mother Family history of arthritis Social History Social History Social History: Surrogate medical decision maker: Mabel Marrero, daughter. Code status: Full code. Smoking status: Former smoker Second hand tobacco smoke exposure: No Alcohol intake: current Drinks per week: 2 Alcohol use details: Six beers on the weekends. Substance use: never Substance use type: does not use Lack of Transportation: No Lack of Food: Never True Current Housing: I Have Housing Concerned About Future Housing: No Difficulty Paying Gas/Electric Bills: No Difficulty Paying for Meds: No Currently Unemployed: No Education: High School Diploma/GED Difficulty w/ Childcare or Family Care: No Additional living arrangements comments: Lives alone in [place]. Has 2 grown children. 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 Spiritual care concerns: No Exam Narrative: APPEARANCE: No apparent distress. Head: atraumatic. EYES: EOMI, NOSE: Atraumatic NECK: Trachea midline RESPIRATORY: No increased rate of breathing , clear to auscultation CARDIOVASCULAR: RRR, no peripheral edema ABDOMINAL: Non-distended, soft nontender no guarding rebound MUSCULOSKELETAl: No obvious deformities NEURO: Alert. Moving 4/4 extremities SKIN:: Warm, dry. Normal color PSYCHIATRIC: Normal affect Course Vital Signs Vital signs: Vital Signs Pulse Rate 57 L 10/05/22 21:47 Respiratory Rate 26 H 10/05/22 21:47 Blood Pressure 168/96 H 10/05/22 21:47 Pulse Oximetry 100 10/05/22 21:47 Oxygen Delivery Room Air 10/05/22 21:47 Pulse Rate 53 L 10/05/22 23:42 Respiratory Rate 14 10/05/22 23:42 Blood Pressure 101/72 10/05/22 23:42 Pulse Oximetry 97 10/05/22 23:42 Oxygen Delivery Room Air 10/05/22 21:[address] [facility] Narrative Medical decision making narrative: -Presentation: 62-year-old female presenting with loss of consciousness with a bradycardic dysrhythmia. -DDX includes but is not limited to: Complete heart block, AFib with slow RVR, cardiogenic syncope -Co-morbidities complicating care: obesity, obstructive sleep apnea, heart failure with preserved ejection fraction, paroxysmal AFib -Social determinants of health: -External Chart Review: review of previous cardiology notes -Hx from independent Sources: daughter @ bedside -Discussion of Management/Consultants:Treva
[2022-10-06] VITALS (37 sets, daily range): BP systolic 96–133; BP diastolic 57–89; PULSE 45–57; RESP 18–20; TEMP 36.1–37.1; O2SAT 93–99; BMI 41.5
--- NOTE | 2022-10-06 00:09 | PC.NURSE ---
Pt taken to bathroom in wheelchair to urinate. Pt tolerated procedure well, denies any dizziness.
--- NOTE | 2022-10-06 00:39 | PM.IMHP ---
H&P: HPI History of Present Illness Date/Time: 10/06/22 00:39 Chief Complaint: Dizziness Narrative: 62-year-old female with past medical history significant for morbid obesity, obstructive sleep apnea, atrial fibrillation rate controlled and anticoagulated. Patient with recent admission discharge earlier in August. Comes back today after she has been having several days of fatigue, lightheadedness, dizziness, near syncopal episode, nausea but no vomiting while patient was waiting in the triage had episode of loss of consciousness patient was wheeled to her room and she was noted to be bradycardic patient was able to recover on her own. Patient denies any fevers, rigors, chills, cough, sputum production, no chest pain, no leg swelling. Preliminary workup was significant for: Chest x-ray was reported as: Indication: Chest palpitations Procedure: AP portable chest Comparison: Comparison to multiple prior studies sequentially, with oldest reviewed study dated? 01/06/2007. Findings: Cardiomegaly. Mild interstitial edema. No pleural effusion or pneumothorax. No acute osseous abnormality. Impression: 1: Cardiomegaly with mild interstitial edema. Review of Systems Review of Systems: Fatigue, lack of energy, decreased stamina, near-syncope, dizziness, syncopal episode while in emergency room. Constitutional: Constitutional: Denies chills, Reports fatigue, Denies fever(s), Reports lethargy, Denies malaise and Denies weakness Eyes: Eyes: Denies change in vision ENT: Denies dysphagia, Reports dizziness and Denies odynophagia Cardiovascular: Cardiovascular: Denies chest pain, Denies leg edema and Reports lightheadedness Respiratory: Respiratory: Denies chest congestion, Denies cough and Denies wheezing Gastrointestinal: Gastrointestinal: Denies abdominal pain, Denies dyspepsia, Denies heartburn, Denies diarrhea, Reports nausea and Denies vomiting Genitourinary: Genitourinary: Denies dysuria Musculoskeletal: Musculoskeletal: Denies back pain, Denies joint swelling and Denies muscle weakness Integumentary/Breasts: Skin/Breast: Denies rash Neurologic: Denies focal weakness and Denies Sensory deficit (Neuro) Psychiatric: Psychiatric: Reports no additional psychiatric complaints and Reports as per HPI Endocrine: Endocrine: Denies cold intolerance, Denies flushing, Denies heat intolerance, Denies polyphagia, Denies polydipsia and Denies palpitations Hematologic/Lymphatic: Hematologic/Lymphatic: Reports no additional hematologic/lymphatic complaints and Reports as per HPI Allergic/Immunologic: Allergic/Immunologic: Reports no additional allergic/immunologic complaints and Reports as per HPI [facility] Past Medical History Medical History Heart failure with preserved ejection fraction Echo in July 2022 showed an EF of 60 to 65% and abnormal diastolic function. Obstructive sleep apnea Paroxysmal atrial fibrillation Surgical History Surgical History History of hysterectomy History of right knee surgery Family History Family History Mother Family history of arthritis Social History Social History Social History: Surrogate medical decision maker: Mabel Marrero, daughter. Code status: Full code. Smoking status: Former smoker Second hand tobacco smoke exposure: No Alcohol intake: current Drinks per week: 2 Alcohol use details: Six beers on the weekends. Substance use: never Substance use type: does not use Lack of Transportation: No Lack of Food: Never True Current Housing: I Have Housing Concerned About Future Housing: No Difficulty Paying Gas/Electric Bills: No Difficulty Paying for Meds: No Currently Unemployed: No Education: High School Diploma/GED Difficulty w/ Childcare o
[2022-10-06 00:40] LABS: Appearance Urine Clear (Clear); Bilirubin Urine Negative (Negative); Blood Urine Negative (Negative); Color Urine Yellow (Yellow); Glucose Urine UA Negative (Negative); Ketones Urine Negative (Negative); Leukocyte Esterase Ur Negative LEU/UL (Negative); Nitrate Urine Negative (Negative); Protein Urine Negative (Negative); Specific Grav Ur 1.018 (1.001-1.035)
[2022-10-06 00:42] LABS: Add Urine Microscopic? NO
[2022-10-06 00:47] LABS: Influenza A QL RT-PCR Negative (Negative); Influenza B QL RT-PCR Negative (Negative); RSV RNA, RT-PCR Negative (Negative); SARS-CoV-2 RNA PCR Negative
[2022-10-06 02:02] LABS: Troponin I 0.015 ng/mL (0.000-0.034)
--- NOTE | 2022-10-06 03:14 | ADMGEN ---
This patient, Lis Lazaro, was admitted to IMU Room 212-01. Patient/family oriented to hospital policies and general routines including ID bracelet, bed and alarms, visiting hours, pain management, procedures, bathroom and other care routines, personal items, smoking policy, room service/diet, and visiting hours. Information on how to activate the Rapid Response Team has been discussed. Patient/Family are encouraged to report perceived risks to care and to ask questions if they do not understand what they are told or what they should do.
[2022-10-06 09:11] LABS: Basophils Percent Auto 0.5 % (0.2-1.2); Eosinophils Absolute Auto 0.1 K/mm3 (0-0.3); Hematocrit 37.6 % (37.0-47.0); Hemoglobin 11.8 g/dL (12.0-15.0); Immature Granulocyte Absolute 0.01 K/mm3 (0.00-0.031); Immature Granulocyte Percent A 0.2 % (0-0.5); Lymphocytes Absolute Auto 2.26 K/mm3 (0.9-3.2); Lymphocytes Percent Auto 37.7 % (18.3-44.2); Mean Corpuscular HGB Conc 31.4 g/dl (32-36); Mean Corpuscular Hemoglobin 24.5 pg (26-34); Mean Platelet Volume 10.5 fl (7.4-10.4); Monocytes Absolute Auto 0.5 K/mm3 (0.1-0.6); Neutrophils Absolute Auto 3.1 K/mm3 (1.3-6.7); Neutrophils Percent Auto 51.6 % (45.5-73.1); Platelet Count Result 245 k/mm3 (150-375); Red Blood Count 4.82 M/mm3 (4.2-5.4); Red Cell Distribution Width 15.2 % (11.5-14.5)
[2022-10-06 09:31] LABS: INR 1.5; Prothrombin Time 17.1 Seconds (11.1-14.7)
[2022-10-06 09:32] LABS: Partial Thromboplastin Time 32.4 SECONDS (22.3-36.8)
[2022-10-06] MEDS: ESCITALOPRAM OXALATE 10 MG TABLET PO (10:41)
[2022-10-06] MEDS: POTASSIUM CHLORIDE 20 MEQ TABLET.ER 40 MEQ PO (10:41)
--- NOTE | 2022-10-06 10:53 | PM.CNCAR ---
Assessment and Plan Assessment and plan (1) Bradyarrhythmia: Code(s): I49.8 - Other specified cardiac arrhythmias Status: Acute Assessment and Plan: EKG showing sinus rhythm with first-degree AVB. Rhythm strips from the ER with sinus rhythm with aberrantly conducted PACS in a bigeminal pattern. No evidence of significant sinus pauses, heart blocks seen at this time. Telemetry with HR in the high 40s to 50s. Holding Flecainide. Continue to hold Flecainide for now. Will monitor telemetry. No clear indication for pacemaker at this time. Recommend 14 day event monitor at the time of discharge. Patient reports dizziness over past 2 weeks, but unclear if her symptoms were due to bradycardia as patient feels well with HR in the 50s right now. Has an upcoming appointment with her primary materials mgmt tech at the end of this month. (2) Atrial fibrillation: Code(s): I48.91 - Unspecified atrial fibrillation Status: Acute Assessment and Plan: Paroxysmal atrial fibrillation. In sinus currently. Holding Flecainide for now due to above. May restart at lower dose if needed. Can switch Heparin drip back to home Xarelto. (3) Obstructive sleep apnea: Code(s): G47.33 - Obstructive sleep apnea (adult) (pediatric) Status: Acute Assessment and Plan: Needs to wear CPAP. History of Present Illness History of Present Illness Consult date/time: 10/06/22 10:53 Requesting physician: Roderick Gee MD Consult reason: Other (Bradycardia) Reason For Visit: mookie dysrhythmia Narrative: We are consulted for bradycardia. This is a 62-year-old female with known history of paroxysmal atrial fibrillation on Flecainide and Xarelto, RANCHO not on CPAP who presented with dizziness and headache. Patient's primary cardiology team is [facility]. Patient reports that she has been having dizziness for about 2 weeks now. Then had a severe headache, which prompted her to come to the ER. Per ER reports, while the patient was being triaged, she went into a sinus pause and appeared to lose consciousness. She was wheeled back emergently and was found to be in atrial fibrillation with multiple PVCs with heart rate of 38. She then converted herself back to sinus rhythm without intervention and felt better. Patient reports full compliance with her Flecainide and has not taken any extra doses. Not on CPAP therapy yet as she is awaiting for CPAP to arrive to her house. Patient does not think she lost consciousness in the ER. States she was told by her primary care to be on bedrest for the past few weeks due to her RANCHO until she can get her CPAP machine. Patient states she has an upcoming appointment with her Airworthiness Safety Inspector at the end of this month. Rhythm strips from the ER show sinus rhythm with aberrantly conducted PACS in a bigeminal pattern. Telemetry with heart rate in the high 40s to low 50s overnight. Review of Systems Review of Systems: All systems reviewed & are unremarkable except as noted in HPI and below (HPI) [facility] Past Medical History Medical History Heart failure with preserved ejection fraction Echo in July 2022 showed an EF of 60 to 65% and abnormal diastolic function. Obstructive sleep apnea Paroxysmal atrial fibrillation Surgical History Surgical History History of hysterectomy History of right knee surgery Family History Family History Mother Family history of arthritis Social History Social History Social History: Surrogate medical decision maker: Mabel Marrero, daughter. Code status: Full code. Smoking packs per day: 1 Smoking cigarettes per day: 20.0 Years smoked: 6 Smoking pack-years: 6.00 Smoking status: Former smoker Tobacco type: cigarettes Second hand
[2022-10-06] MEDS: BISACODYL 5 MG TABLET EC PO (11:18)
--- NOTE | 2022-10-06 14:21 | PM.IMPN ---
Progress Note: A&P Assessment and Plan (1) Bradyarrhythmia: Code(s): I49.8 - Other specified cardiac arrhythmias Status: Acute Assessment and Plan: Admit to IMU Hold flecainide Continuous telemetry Cardiology consult Dizziness HPI-Narrative: 62-year-old female with past medical history significant for morbid obesity, obstructive sleep apnea, atrial fibrillation rate controlled and anticoagulated.? Patient with recent admission discharge earlier in August.? Comes back today after she has been having several days of fatigue, lightheadedness, dizziness, near syncopal episode, nausea but no vomiting while patient was waiting in the triage had episode of loss of consciousness patient was wheeled to her? room and she was noted to be bradycardic patient was able to recover on her own.? Patient denies any fevers, rigors, chills, cough, sputum production, no chest pain, no leg swelling.? 10/06/2022 interval history: Patient presented emergency depart and had a syncopal episode patient was bradycardic and currently heart rate between 50 and 60, Ca has no symptoms, patient seen by organic gardening teacher recommended to hold atenolol and flecainide and monitor the patient, will continue to monitor and further recommendation to follow. (2) Atrial fibrillation: Code(s): I48.91 - Unspecified atrial fibrillation Status: Acute Assessment and Plan: Rate control and anticoagulated (3) Syncope: Code(s): R55 - Syncope and collapse Status: Acute Assessment and Plan: Likely secondary to arrhythmia Supportive care (4) Heart failure with preserved ejection fraction: Code(s): I50.30 - Unspecified diastolic (congestive) heart failure Status: Acute Assessment and Plan: Summary ? 1. Complete two-dimensional, color flow and Doppler transthoracic echocardiogram is performed. ? 2. Left ventricular chamber dimension is normal. ? 3. Left ventricular systolic function is normal, estimated at 60-65%. ? 4. The left ventricular diastolic function is abnormal. ? 5. E/e' 16 is elevated. ? 6. Atrial fibrillation. ? 7. Left atrial chamber dimension is mildly enlarged. ? 8. There is mild aortic valve sclerosis. ? 9. The mitral valve has mildly calcified annulus. ? 10. There is mild mitral valve regurgitation. ? 11. No pulmonary hypertension, estimated pulmonary arterial systolic pressure is 34 mmHg. ? 12. There is trace pulmonic regurgitation. BMP in the 600 range Patient appears euvolemic Continue to monitor (5) Morbid obesity with BMI of 45.0-49.9, adult: Code(s): E66.01 - Morbid (severe) obesity due to excess calories; Z68.42 - Body mass index [BMI] 45.0-49.9, adult Status: Acute Assessment and Plan: Lifestyle and diet modifications Heart healthy 1800 calorie restricted diet Subjective Date/time seen: 10/06/22 14:21 Dizziness HPI-Narrative: 62-year-old female with past medical history significant for morbid obesity, obstructive sleep apnea, atrial fibrillation rate controlled and anticoagulated.? Patient with recent admission discharge earlier in August.? Comes back today after she has been having several days of fatigue, lightheadedness, dizziness, near syncopal episode, nausea but no vomiting while patient was waiting in the triage had episode of loss of consciousness patient was wheeled to her? room and she was noted to be bradycardic patient was able to recover on her own.? Patient denies any fevers, rigors, chills, cough, sputum production, no chest pain, no leg swelling.? 10/06/2022 interval history: Patient presented emergency depart and had a syncopal episode patient was bradycardic and currently heart rate between 50 and 60, Ca has no symptoms, patient seen by organic gardening teacher recommended to hold atenolol and flecainide and monitor the patient, will continue to monitor and further recommendation to follow. Review of Systems Constitutional: Constitutional: Denies chills, Report
[2022-10-06] MEDS: RIVAROXABAN 20 MG TABLET PO (17:32)
[2022-10-07] VITALS (14 sets, daily range): BP systolic 108–156; BP diastolic 62–101; PULSE 45–94; RESP 16–20; TEMP 36–36.6; O2SAT 96–100
[2022-10-07 04:52] LABS: Basophils Percent Auto 0.6 % (0.2-1.2); Eosinophils Absolute Auto 0.1 K/mm3 (0-0.3); Eosinophils Percent Auto 1.7 % (0-4.4); Hematocrit 39.1 % (37.0-47.0); Hemoglobin 12.1 g/dL (12.0-15.0); Immature Granulocyte Absolute 0.01 K/mm3 (0.00-0.031); Immature Granulocyte Percent A 0.2 % (0-0.5); Lymphocytes Absolute Auto 2.32 K/mm3 (0.9-3.2); Lymphocytes Percent Auto 42.6 % (18.3-44.2); Mean Corpuscular HGB Conc 30.9 g/dl (32-36); Mean Corpuscular Hemoglobin 24.9 pg (26-34); Mean Corpuscular Volume 80.6 fl (80-100); Mean Platelet Volume 10.2 fl (7.4-10.4); Monocytes Absolute Auto 0.4 K/mm3 (0.1-0.6); Monocytes Percent Auto 7.9 % (2.6-8.5); Neutrophils Absolute Auto 2.6 K/mm3 (1.3-6.7); Platelet Count Result 230 k/mm3 (150-375); Red Blood Count 4.85 M/mm3 (4.2-5.4); Red Cell Distribution Width 15.2 % (11.5-14.5); White Blood Count 5.4 K/mm3 (4.5-10.0)
[2022-10-07] MEDS: POTASSIUM CHLORIDE 20 MEQ TABLET.ER 40 MEQ PO (08:27)
[2022-10-07] MEDS: ESCITALOPRAM OXALATE 10 MG TABLET PO (08:27)
[2022-10-07] MEDS: FUROSEMIDE INJ 40 MG/4 ML VIAL 20 MG IV PUSH (11:32)
[2022-10-07 11:46] LABS: Anion Gap 5 mmol/L (8-16); Blood Urea Nitrogen 14 mg/dL (7-17); Calcium 9.2 mg/dL (8.4-10.2); Carbon Dioxide 28 mmol/L (22-30); Chloride 105 mmol/L (98-107); Estimated CRCL calculation 82 ml/min; Estimated Glomerular Filt Rate > 60; Glucose 104 mg/dL (65-110); Magnesium 2.1 mg/dL (1.6-2.3); Potassium 4.4 mmol/L (3.4-5.0); Sodium 138 mmol/L (137-145)
[2022-10-07] MEDS: FUROSEMIDE 40 MG TABLET PO (12:33)
--- NOTE | 2022-10-07 13:15 | PM.PNCARD ---
Progress Note: A&P Assessment and Plan (1) Bradyarrhythmia: Code(s): I49.8 - Other specified cardiac arrhythmias Status: Acute Assessment and Plan: EKG showing sinus rhythm with first-degree AVB. Rhythm strips from the ER with sinus bradycardia with aberrantly conducted PACS in a bigeminal pattern. No evidence of significant sinus pauses, heart blocks seen at this time. Telemetry with HR in the high 40s to 50s. Will discontinue Flecainide. Do not resume upon discharge. No need for pacemaker at this time. Recommend 14 day event monitor at the time of discharge. Patient reports dizziness over past 2 weeks, but unclear if her symptoms were due to bradycardia as patient feels well with HR in the 50s right now. Patient is asymptomatic now with HR in the 50s. Has an upcoming appointment with her primary grade setter at the end of this month. (2) Atrial fibrillation: Code(s): I48.91 - Unspecified atrial fibrillation Status: Acute Assessment and Plan: Paroxysmal atrial fibrillation. In sinus currently. Continue home Xarelto. Flecainide stopped due to the above. (3) Obstructive sleep apnea: Code(s): G47.33 - Obstructive sleep apnea (adult) (pediatric) Status: Acute Assessment and Plan: Needs to wear CPAP. Subjective Date/time seen: 10/07/22 13:15 Interval history: Reason for visit: Bradycardia HPI: We are consulted for bradycardia. This is a 62-year-old female with known history of paroxysmal atrial fibrillation on Flecainide and Xarelto, RANCHO not on CPAP who presented with dizziness and headache. Patient's primary cardiology team is [facility]. Patient reports that she has been having dizziness for about 2 weeks now. Then had a severe headache, which prompted her to come to the ER. Per ER reports, while the patient was being triaged, she went into a sinus pause and appeared to lose consciousness. She was wheeled back emergently and was found to be in atrial fibrillation with multiple PVCs with heart rate of 38. She then converted herself back to sinus rhythm without intervention and felt better. Patient reports full compliance with her Flecainide and has not taken any extra doses. Not on CPAP therapy yet as she is awaiting for CPAP to arrive to her house. Patient does not think she lost consciousness in the ER. States she was told by her primary care to be on bedrest for the past few weeks due to her RANCHO until she can get her CPAP machine. Patient states she has an upcoming appointment with her Complaint Adjuster at the end of this month. Rhythm strips from the ER show sinus rhythm with aberrantly conducted PACS in a bigeminal pattern. Telemetry with heart rate in the high 40s to low 50s overnight. Date of service: HR in the low 50s. Patient is feeling well this morning without any symptoms. Review of Systems Review of Systems: All systems reviewed & are unremarkable except as noted in HPI and below (HPI) Exam Const: General: comfortable and no acute distress HENMT: Mouth: Yes moist mucous membranes Eyes: General: appearance normal, both eyes and all related structures Sclera: sclerae normal Neck: Neck: supple Resp: Effort & Inspection: normal respiratory effort Auscultation: clear to auscultation bilaterally Cardio: Rate: bradycardic Rhythm: regular rhythm Heart sounds: no murmurs GI: GI Palp: Yes Soft to palpation and No Tenderness to palpation present (GI) Skin: General skin exam: normal color Neuro: Speech: normal speech Extrem: General: normal to inspection Psych: Mental Status: mental status grossly normal Affect: normal affect Objective Data Vital Signs Vital Signs: Vital Signs - 24 hr 10/06/22 14:00 10/06/22 16:00 10/06/22 16:00 Temperature Pulse Rate 53 L 56 L Respiratory Rate Blood Pressure Pulse Oximetry Oxygen Delivery Room Air 10/06/22 16:00 10/06/22 18:00 10/06/22 20:00 Temperature 37.1 C 36.4 C Pulse
--- NOTE | 2022-10-07 13:53 | PCCCNOTE ---
On 10/07/22, the student, [Melissa Palma ], provided care and completed [facility] this patient. I have reviewed the student's documentation and agree with the findings.
--- NOTE | 2022-10-07 14:59 | PM.IMPN ---
Progress Note: A&P Assessment and Plan (1) Bradyarrhythmia: Code(s): I49.8 - Other specified cardiac arrhythmias Status: Acute Assessment and Plan: Admit to IMU Hold flecainide Continuous telemetry Cardiology consult Dizziness HPI-Narrative: 62-year-old female with past medical history significant for morbid obesity, obstructive sleep apnea, atrial fibrillation rate controlled and anticoagulated.? Patient with recent admission discharge earlier in August.? Comes back today after she has been having several days of fatigue, lightheadedness, dizziness, near syncopal episode, nausea but no vomiting while patient was waiting in the triage had episode of loss of consciousness patient was wheeled to her? room and she was noted to be bradycardic patient was able to recover on her own.? Patient denies any fevers, rigors, chills, cough, sputum production, no chest pain, no leg swelling.? 10/07/2022 interval history: Patient presented emergency depart and had a syncopal episode patient was bradycardic and patient is taking atnolol and flecainide which are placed on hold currently heart rate between 50 and 60, seen by supervisor coil winding suspect dizziness due to bradycardia and recommended to hold atonolol and flecainide.and monitor the patient, upon discharge patient will need 14 day holter monitor and follow up with her primary care provider, today patient was short of breath, felt congested gave Lasix 20mg IV x1. and felt better, will continue to monitor and have PT/OT evaluate the patient further recommendation to follow. her daughter is present in the room and gave updates. (2) Atrial fibrillation: Code(s): I48.91 - Unspecified atrial fibrillation Status: Acute Assessment and Plan: Rate control and anticoagulated (3) Syncope: Code(s): R55 - Syncope and collapse Status: Acute Assessment and Plan: Likely secondary to arrhythmia Supportive care (4) Heart failure with preserved ejection fraction: Code(s): I50.30 - Unspecified diastolic (congestive) heart failure Status: Acute Assessment and Plan: Summary ? 1. Complete two-dimensional, color flow and Doppler transthoracic echocardiogram is performed. ? 2. Left ventricular chamber dimension is normal. ? 3. Left ventricular systolic function is normal, estimated at 60-65%. ? 4. The left ventricular diastolic function is abnormal. ? 5. E/e' 16 is elevated. ? 6. Atrial fibrillation. ? 7. Left atrial chamber dimension is mildly enlarged. ? 8. There is mild aortic valve sclerosis. ? 9. The mitral valve has mildly calcified annulus. ? 10. There is mild mitral valve regurgitation. ? 11. No pulmonary hypertension, estimated pulmonary arterial systolic pressure is 34 mmHg. ? 12. There is trace pulmonic regurgitation. BMP in the 600 range Patient appears euvolemic Continue to monitor (5) Morbid obesity with BMI of 45.0-49.9, adult: Code(s): E66.01 - Morbid (severe) obesity due to excess calories; Z68.42 - Body mass index [BMI] 45.0-49.9, adult Status: Acute Assessment and Plan: Lifestyle and diet modifications Heart healthy 1800 calorie restricted diet Subjective Date/time seen: 10/07/22 14:59 HPI-Narrative: 62-year-old female with past medical history significant for morbid obesity, obstructive sleep apnea, atrial fibrillation rate controlled and anticoagulated.? Patient with recent admission discharge earlier in August.? Comes back today after she has been having several days of fatigue, lightheadedness, dizziness, near syncopal episode, nausea but no vomiting while patient was waiting in the triage had episode of loss of consciousness patient was wheeled to her? room and she was noted to be bradycardic patient was able to recover on her own.? Patient denies any fevers, rigors, chills, cough, sputum production, no chest pain, no leg swelling.? 10/07/2022 interval history: Patient presented emergency depart and had a
[2022-10-07] MEDS: RIVAROXABAN 20 MG TABLET PO (17:17)
[2022-10-08] VITALS (14 sets, daily range): BP systolic 95–137; BP diastolic 55–109; PULSE 64–153; RESP 16–20; TEMP 36.1–36.9; O2SAT 96–100
[2022-10-08 05:38] LABS: Anion Gap 7 mmol/L (8-16); Blood Urea Nitrogen 20 mg/dL (7-17); Calcium 9.3 mg/dL (8.4-10.2); Carbon Dioxide 31 mmol/L (22-30); Chloride 100 mmol/L (98-107); Estimated CRCL calculation 59 ml/min; Estimated Glomerular Filt Rate > 60; Glucose 113 mg/dL (65-110); Magnesium 2.2 mg/dL (1.6-2.3); Potassium 4.4 mmol/L (3.4-5.0); Sodium 138 mmol/L (137-145)
[2022-10-08 05:40] LABS: Hematocrit 43.7 % (37.0-47.0); Hemoglobin 13.6 g/dL (12.0-15.0); Mean Corpuscular HGB Conc 31.1 g/dl (32-36); Mean Corpuscular Hemoglobin 24.3 pg (26-34); Mean Platelet Volume 10.8 fl (7.4-10.4); Platelet Count Result 309 k/mm3 (150-375); Red Cell Distribution Width 14.8 % (11.5-14.5); White Blood Count 7.1 K/mm3 (4.5-10.0)
[2022-10-08] MEDS: ESCITALOPRAM OXALATE 10 MG TABLET PO (08:35)
[2022-10-08] MEDS: FUROSEMIDE 40 MG TABLET PO (08:35)
[2022-10-08] MEDS: POTASSIUM CHLORIDE 20 MEQ TABLET.ER 40 MEQ PO (08:35)
--- NOTE | 2022-10-08 11:29 | PM.PNCARD ---
Progress Note: A&P Assessment and Plan (1) Bradyarrhythmia: Code(s): I49.8 - Other specified cardiac arrhythmias Status: Acute Assessment and Plan: Telemetry now showing atrial fibrillation with RVR, heart rate ranging from 120's - 140's. Discussed plan to resume Flecainide at previous dose of 100mg b.i.d., which had been controlling her rhythm well. Patient unwilling to resume Flecainide at previous dosing as she is attributing her presenting symptoms to this medication and thinks the dose is too high. Discussed management strategy for atrial fibrillation including the concept of rate control vs. rhythm control and decision made by her primary district court judge, Dr. Burks to pursue rhythm control with Flecainide, which had been successful. Patient made it clear that she wants her heart to stop quivering. Reviewed patient's history of maintaining sinus rhythm on flecainide. Therefore, I made mutual decision with the patient to resume flecainide at 50mg b.i.d. and observe for any recurrence of symptoms. We also discussed that other anti-arrhythmic options are available. Patient requested that I update Dr. Burks regarding patient's hospitalization and plan of care. I confirmed that I would speak with him directly to update him. The patient became tearful and agitated discussing her frustration with her dizziness. We reviewed the plan to restart lower dose Flecainide and observe for any recurrence of dizziness, but the patient now would like me to speak with Dr. Burks before restarting any medication. At this point, patient's heart rate is in the 170's. I reassured her again that I would communicate with Dr. Landon, but I explained that I would like to treat her tachycardia sooner as I was unsure if I would be able to speak directly to him right away. At this time, patient is adamantly refusing any treatment of her atrial fibrillation with RVR until recommendations from Dr. Landon are presented to her. I called Dr. Landon directly on his cell phone at 11:38, and spoke to one of his colleagues who was answering his phone for him as he had just started a procedure. I left instructions for a call back regarding this mutual patient. (2) Atrial fibrillation: Code(s): I48.91 - Unspecified atrial fibrillation Status: Acute Assessment and Plan: As above. (3) Obstructive sleep apnea: Code(s): G47.33 - Obstructive sleep apnea (adult) (pediatric) Status: Acute Assessment and Plan: Reinforced the importance of compliance with CPAP in the ongoing management of her atrial fibrillation. Subjective Date/time seen: 10/08/22 11:00 Cardiology follow up for atrial fibrillation Interval history: Reason for visit: Bradycardia HPI: We are consulted for bradycardia. This is a 62-year-old female with known history of paroxysmal atrial fibrillation on Flecainide and Xarelto, RANCHO not on CPAP who presented with dizziness and headache. Patient's primary cardiology team is [facility]. Patient reports that she has been having dizziness for about 2 weeks now. Then had a severe headache, which prompted her to come to the ER. Per ER reports, while the patient was being triaged, she went into a sinus pause and appeared to lose consciousness. She was wheeled back emergently and was found to be in atrial fibrillation with multiple PVCs with heart rate of 38. She then converted herself back to sinus rhythm without intervention and felt better. Patient reports full compliance with her Flecainide and has not taken any extra doses. Not on CPAP therapy yet as she is awaiting for CPAP to arrive to her house. Patient does not think she lost consciousness in the ER. States she was told by her primary care to be on bedrest for the past few weeks due to her RANCHO until she can get her CPAP machine. Patient states she has an upcoming appointment with her Pharmacy Technician at the end of this month. Rhythm strips from the ER show s
[2022-10-08] MEDS: METOPROLOL SUCCINATE EXT REL 25 MG TABCR PO (15:55)
[2022-10-08] MEDS: RIVAROXABAN 20 MG TABLET PO (15:55)
--- NOTE | 2022-10-08 17:51 | PM.IMPN ---
Progress Note: A&P Assessment and Plan (1) Bradyarrhythmia: Code(s): I49.8 - Other specified cardiac arrhythmias Status: Acute Assessment and Plan: Admit to IMU Hold flecainide Continuous telemetry Cardiology consult Dizziness HPI-Narrative: 62-year-old female with past medical history significant for morbid obesity, obstructive sleep apnea, atrial fibrillation rate controlled and anticoagulated.? Patient with recent admission discharge earlier in August.? Comes back today after she has been having several days of fatigue, lightheadedness, dizziness, near syncopal episode, nausea but no vomiting while patient was waiting in the triage had episode of loss of consciousness patient was wheeled to her? room and she was noted to be bradycardic patient was able to recover on her own.? Patient denies any fevers, rigors, chills, cough, sputum production, no chest pain, no leg swelling.? 10/07/2022 interval history: Patient presented emergency depart and had a syncopal episode patient was bradycardic and patient is taking atnolol and flecainide which are placed on hold currently heart rate between 50 and 60, seen by pneudraulic systems mechanic suspect dizziness due to bradycardia and recommended to hold atonolol and flecainide.and monitor the patient, upon discharge patient will need 14 day holter monitor and follow up with her primary care provider, today patient was short of breath, felt congested gave Lasix 20mg IV x1. and felt better, will continue to monitor and have PT/OT evaluate the patient further recommendation to follow. her daughter is present in the room and gave updates. Neck 10/08/2022 present syncopal episode patient was bradycardic patient was taking atenolol and flecainide which is currently on hold. Cardiology consulted. Patient will need 14 day Holter monitor at discharge. Patient was short of breath feel congested give Lasix 20 mg IV x1 felt better. Event 8. Back to AFib with RVR again today. Resuming flecainide as discussed with Cardiology with the patient. (2) Atrial fibrillation: Code(s): I48.91 - Unspecified atrial fibrillation Status: Acute Assessment and Plan: Rate control and anticoagulated (3) Syncope: Code(s): R55 - Syncope and collapse Status: Acute Assessment and Plan: Likely secondary to arrhythmia Supportive care (4) Heart failure with preserved ejection fraction: Code(s): I50.30 - Unspecified diastolic (congestive) heart failure Status: Acute Assessment and Plan: Summary ? 1. Complete two-dimensional, color flow and Doppler transthoracic echocardiogram is performed. ? 2. Left ventricular chamber dimension is normal. ? 3. Left ventricular systolic function is normal, estimated at 60-65%. ? 4. The left ventricular diastolic function is abnormal. ? 5. E/e' 16 is elevated. ? 6. Atrial fibrillation. ? 7. Left atrial chamber dimension is mildly enlarged. ? 8. There is mild aortic valve sclerosis. ? 9. The mitral valve has mildly calcified annulus. ? 10. There is mild mitral valve regurgitation. ? 11. No pulmonary hypertension, estimated pulmonary arterial systolic pressure is 34 mmHg. ? 12. There is trace pulmonic regurgitation. BMP in the 600 range Patient appears euvolemic Continue to monitor (5) Morbid obesity with BMI of 45.0-49.9, adult: Code(s): E66.01 - Morbid (severe) obesity due to excess calories; Z68.42 - Body mass index [BMI] 45.0-49.9, adult Status: Acute Assessment and Plan: Lifestyle and diet modifications Heart healthy 1800 calorie restricted diet Subjective Date/time seen: 10/08/22 17:51 Interval history: Upset this morning. Back to AFib with RVR this morning. Denies any palpitations chest pain or shortness of breath. Frustrated about having this AFib off and on Review of Systems Review of Systems: All systems reviewed & are unremarkable except as noted in HPI and below Exam Narrative: GENERAL:
[2022-10-09] VITALS (8 sets, daily range): BP systolic 109–140; BP diastolic 62–66; PULSE 55–90; RESP 14–18; TEMP 36.2–36.5; O2SAT 99–100
[2022-10-09 05:40] LABS: Hematocrit 43.7 % (37.0-47.0); Hemoglobin 13.7 g/dL (12.0-15.0); Mean Corpuscular HGB Conc 31.4 g/dl (32-36); Mean Corpuscular Hemoglobin 25.1 pg (26-34); Mean Corpuscular Volume 80.2 fl (80-100); Mean Platelet Volume 10.5 fl (7.4-10.4); Platelet Count Result 263 k/mm3 (150-375); Red Blood Count 5.45 M/mm3 (4.2-5.4); White Blood Count 6.5 K/mm3 (4.5-10.0)
[2022-10-09 05:48] LABS: Anion Gap 7 mmol/L (8-16); Blood Urea Nitrogen 24 mg/dL (7-17); Carbon Dioxide 29 mmol/L (22-30); Chloride 100 mmol/L (98-107); Estimated CRCL calculation 64 ml/min; Estimated Glomerular Filt Rate > 60; Glucose 107 mg/dL (65-110); Magnesium 2.2 mg/dL (1.6-2.3); Potassium 4.9 mmol/L (3.4-5.0); Sodium 136 mmol/L (137-145)
[2022-10-09] MEDS: ESCITALOPRAM OXALATE 10 MG TABLET PO (08:25)
[2022-10-09] MEDS: FUROSEMIDE 40 MG TABLET PO (08:25)
[2022-10-09] MEDS: POTASSIUM CHLORIDE 20 MEQ TABLET.ER 40 MEQ PO (08:25)
--- NOTE | 2022-10-09 13:36 | PM.PNCARD ---
Progress Note: A&P Assessment and Plan (1) Bradyarrhythmia: Code(s): I49.8 - Other specified cardiac arrhythmias Status: Acute (2) Atrial fibrillation: Code(s): I48.91 - Unspecified atrial fibrillation Status: Acute (3) Syncope: Code(s): R55 - Syncope and collapse Status: Acute Plan 62-year-old lady with morbid obesity and symptomatic paroxysmal AFib management has become more problematic since she is now also having significant pauses resulting in symptomatic bradycardia. She is now just on Xarelto for anticoagulation although the medication has been discontinued. At this point my recommendation would be for this lady to have a permanent dual-chamber pacemaker implanted after which she will be protected against pauses/Mookie arrhythmias and more aggressive medical antiarrhythmic therapy can be resumed/attempted. The patient has been under the care of cardiology group elsewhere and does not wish to transfer her care to our practice. I discussed the option of starting her on a modest dose of diltiazem to try to prevent symptoms of tachycardia with RVR the patient does not wish to try any new medications at this time. She has a follow-up appointment with her established tapering machine operator in [place] next week and would like to have this conversation with him and discuss options of pacemaker/device implantation as I have described above. From my perspective she can be discharged. She should stay anticoagulated with Xarelto. She should present to a different hospital should she become symptomatic over the weekend and need more urgent care. Her tapering machine operator works at many other hospitals but not at [place]. She understands this and does not wish to start a additional medication at this time. Ross Roper MD [facility] Subjective Date/time seen: Date of service: 10/09/22 13:36 Interval history: Follow-up visit in this 62-year-old lady with: Paroxysmal atrial fibrillation/flutter with picture of tachy-mookie syndrome. Patient has episodes of tachycardia and palpitations when she is in a RVR and then also has sinus bradycardia and concerning Hope has had some asystolic pauses of his long as 5-6 seconds on telemetry since being in the hospital. Medical regimen of metoprolol and flecainide has been discontinued. Patient is currently in sinus rhythm and feels well. Exam Const: General: comfortable and no acute distress Other: Pleasant morbidly obese female no distress of any kind in good spirits. HENMT: Mouth: Yes moist mucous membranes Eyes: Sclera: sclerae normal Pupils: Equal, round and reactive pupils present Neck: Neck: supple and no JVD Resp: Effort & Inspection: normal respiratory effort Auscultation: clear to auscultation bilaterally Other: Breath sounds distant but clear Cardio: Rate: regular rate Rhythm: regular rhythm Other: PMI is not palpable no murmur 4th heart sound is audible GI: GI Palp: Yes Soft to palpation Auscultation: normal bowel sounds Skin: General skin exam: normal color Neuro: Other: Alert and oriented x3 Extrem: General: normal to inspection Objective Data Vital Signs Vital Signs: Vital Signs - 24 hr 10/08/22 14:00 10/08/22 15:55 10/08/22 16:00 Temperature 36.2 C L Pulse Rate 116 H 114 H 82 Respiratory Rate 16 Blood Pressure 118/68 Pulse Oximetry 97 Oxygen Delivery 10/08/22 16:00 10/08/22 16:00 10/08/22 18:00 Temperature Pulse Rate 153 H 85 Respiratory Rate Blood Pressure Pulse Oximetry 98 Oxygen Delivery Room Air 10/08/22 20:00 10/08/22 23:53 10/08/22 20:00 Temperature 36.3 C L 36.9 C Pulse Rate 88 87 Respiratory Rate 16 16 Blood Pressure 95/55 L 103/55 L Pulse Oximetry 98 100 99 Oxygen Delivery Room Air 10/09/22 00:00 10/09/22 04:00 10/09/22 04:00 Temperature 36.2 C L Pulse Rate 58 L Respiratory Rate 16 Blood Pressure 109/62 Pulse Oximetry 99 99 99 Oxygen Delivery
--- NOTE | 2022-10-09 14:27 | PM.DS ---
DS: Admitting Diagnosis Discharge Date 10/09/2022 Admitting Diagnosis Syncope DS: Discharge Diagnosis Discharge Diagnosis (1) Bradyarrhythmia: Code(s): I49.8 - Other specified cardiac arrhythmias Status: Acute (2) Atrial fibrillation: Code(s): I48.91 - Unspecified atrial fibrillation Status: Acute (3) Syncope: Code(s): R55 - Syncope and collapse Status: Acute (4) Heart failure with preserved ejection fraction: Code(s): I50.30 - Unspecified diastolic (congestive) heart failure Status: Acute (5) Morbid obesity with BMI of 45.0-49.9, adult: Code(s): E66.01 - Morbid (severe) obesity due to excess calories; Z68.42 - Body mass index [BMI] 45.0-49.9, adult Status: Acute DS: Summary Hospital Course Hospital Course: 62-year-old female with past medical history significant for morbid obesity, obstructive sleep apnea, atrial fibrillation rate controlled and anticoagulated.? Patient with recent admission discharge earlier in August.? Comes back today after she has been having several days of fatigue, lightheadedness, dizziness, near syncopal episode, nausea but no vomiting while patient was waiting in the triage had episode of loss of consciousness patient was wheeled to her? room and she was noted to be bradycardic patient was able to recover on her own.? Patient denies any fevers, rigors, chills, cough, sputum production, no chest pain, no leg swelling. Due to bradycardia her atenolol and flecainide was held. She however went into atrial fibrillation with rapid ventricular rate during the hospital stay. She also has several episodes of significant pauses suggestive of tachy-mookie syndrome. Cardiology was consulted during the hospital stay. Cardiology recommended permanent dual-chamber pacemaker implantation with which positive Mookie arrhythmias will be protected and more aggressive medical anti arrhythmic therapy can be resumed. She has however opted for discussing this with her regular photostat operator helper at [place]. Appointment is on Wednesday. She did not wish to get started on any additional medication during the hospital stay. She does advised to follow-up with her photostat operator helper in [place] next week and discuss option of pacemaker/device implantation. In case she becomes symptomatic because of this issue over the weekend she is advised that she promptly go to the hospital that her regular photostat operator helper goes to. Echo done during the hospital stay showed EF of 60-65% with no significant valvular abnormalities. Time Spent with Patient Time attestation: Total time spent providing and/or coordinating discharge services: 35 minutes Exam Narrative: GENERAL: The patient is well developed, not in acute distress HEENT: Nonicteric sclerae, PERRLA, EOMI. Oropharynx clear. Moist mucous membranes. Conjunctivae appear well perfused. CHEST: Chest wall is nontender. HEART: Irregularly irregular tachycardic AFib on tele without murmur, rubs, or gallops LUNGS: Clear to auscultation bilaterally. no respiratory distress ABDOMEN: Soft, positive bowel sounds, non-tender, no organomegaly. SKIN: No rash, no excessive bruising, petechiae, or purpura. NEUROLOGIC: Cranial nerves II-XII intact, alert and oriented x 3, no gross motor deficits EXTREMITIES: no edema, cyanosis or clubbing DS: Data Data Completed and Pending Labs on day of discharge: Labs from last 24 hours 10/09/22 10/09/22 05:08 05:08 WBC 6.5 RBC 5.45 H Hgb 13.7 Hct 43.7 MCV 80.2 MCH 25.1 L MCHC 31.4 L RDW 15.0 H Plt Count 263 MPV 10.5 H Sodium 136 L Potassium 4.9 Chloride 100 Carbon Dioxide 29 Anion Gap 7 L BUN 24 H Creatinine 0.90 Estim Creat Clear Calc 64 Estimated GFR > 60 Glucose 107 Calcium 9.0 Magnesium 2.2 Imaging Radiologist's impression: ITS Impressions Chest X-Ray 10/05/22 22:23 Impression: 1: Cardiomegaly with mild interstitial edema.
== END 2022-10-09 17:02 | disposition home or self-care (01) | DRG 309 ==
LOC: ANHED 10-06 01:33 → ANHIMU 10-06 02:20
PROVIDERS: Family Medicine; Internal Medicine; Admitting Provider Internal Medicine; Emergency Provider Emergency Medicine; PCP Physician Assistant; Visit Provider Internal Medicine
DX: I49.8 Other specified cardiac arrhythmias (principal); Z68.41 Body mass index [BMI] 40.0-44.9, adult; I48.0 Paroxysmal atrial fibrillation; R55 Syncope and collapse; Z20.822 Contact with and (suspected) exposure to COVID-19; E66.01 Morbid (severe) obesity due to excess calories; G47.33 Obstructive sleep apnea (adult) (pediatric); Z90.710 Acquired absence of both cervix and uterus; Z79.01 Long term (current) use of anticoagulants
CPT/HCPCS: 36415; 71045; 80048; 80053; 81003; 83735; 83880; 84100; 84443; 84484; 85025; 85027; 85610; 85730; 87637; 93005; 96374; 99285; A9270; G0378; J1940

== ENCOUNTER 2022-11-03 14:53 | Outpatient (CLI) | payer BC, SELFPAY ==
[2022-11-03 15:27] LABS: Basophils Absolute Auto 0.1 K/mm3 (0.0-0.1); Basophils Percent Auto 0.9 % (0.2-1.2); Eosinophils Absolute Auto 0.1 K/mm3 (0-0.3); Eosinophils Percent Auto 1.7 % (0-4.4); Hematocrit 40.1 % (37.0-47.0); Hemoglobin 12.2 g/dL (12.0-15.0); Mean Corpuscular HGB Conc 30.4 g/dl (32-36); Mean Corpuscular Hemoglobin 24.6 pg (26-34); Mean Platelet Volume 10.6 fl (7.4-10.4); Monocytes Absolute Auto 0.5 K/mm3 (0.1-0.6); Monocytes Percent Auto 7.7 % (2.6-8.5); Neutrophils Absolute Auto 2.9 K/mm3 (1.3-6.7); Neutrophils Percent Auto 45.7 % (45.5-73.1); Platelet Count Result 257 k/mm3 (150-375); Red Blood Count 4.95 M/mm3 (4.2-5.4); Red Cell Distribution Width 14.8 % (11.5-14.5); White Blood Count 6.4 K/mm3 (4.5-10.0)
[2022-11-03 15:40] LABS: Anion Gap 6 mmol/L (8-16); Blood Urea Nitrogen 11 mg/dL (7-17); Calcium 9.2 mg/dL (8.4-10.2); Carbon Dioxide 30 mmol/L (22-30); Chloride 101 mmol/L (98-107); Cholesterol 230 mg/dL (0-200); Estimated Glomerular Filt Rate > 60; Glucose 92 mg/dL (65-110); HDL Direct 37 mg/dL; Potassium 4.5 mmol/L (3.4-5.0); Sodium 137 mmol/L (137-145); Triglycerides 145 mg/dL (<150)
[2022-11-03 15:41] LABS: INR 1.7; Prothrombin Time 21.2 Seconds (11.1-14.7)
[2022-11-03 15:42] LABS: Partial Thromboplastin Time 38.5 SECONDS (22.3-36.8)
[2022-11-03 15:50] LABS: LDL Cholesterol Direct 134 mg/dL
== END 2022-11-03 14:54 | disposition home or self-care (01) ==
LOC: ANHLAB 14:56
PROVIDERS: PCP Physician Assistant; Visit Provider Internal Medicine Cardiovascular Disease
DX: I48.91 Unspecified atrial fibrillation (principal); I47.20 Ventricular tachycardia, unspecified; R55 Syncope and collapse; I10 Essential (primary) hypertension; I48.92 Unspecified atrial flutter; E66.9 Obesity, unspecified; G47.30 Sleep apnea, unspecified; R00.2 Palpitations
CPT/HCPCS: 36415; 80048; 80061; 85025; 85610; 85730

== ENCOUNTER 2022-12-22 08:13 | Emergency (ER) | payer BC, SELFPAY ==
[2022-12-22] VITALS (8 sets, daily range): BP systolic 98–109; BP diastolic 56–71; PULSE 75–100; RESP 12–18; TEMP 36.1; O2SAT 97–99
--- NOTE | ~2022-12-22 | CT_ITS ---
EXAMINATION: CTA chest PE protocol DATE: 12/22/2022 09:01 INDICATION: Chest pain and shortness of breath TECHNIQUE: Computed tomography angiography (CTA) of the chest was performed with 100 mL Omnipaque-350 intravenous contrast timed to evaluate the pulmonary arteries. Coronal maximum intensity projection 3D-reconstructions were created by the technologist. The dose-length product (DLP) was 741.76 mGy-cm. Automated exposure control and iterative reconstruction technique were employed. COMPARISON: None. FINDINGS: The pulmonary arteries are well-opacified. No pulmonary embolism is identified. There is mi ld dependent atelectasis. No focal airspace opacities are identified. No pleural effusion or pneumoth orax. No pathologically enlarged thoracic lymph nodes are identified. The heart size is normal. There is a 2.5 cm cyst of the left hepatic lobe. There are bridging osteophytes at multiple levels in the spine, consistent with diffuse idiopathic skeletal hyperostosis (DISH). IMPRESSION: 1. No pulmonary embolism or acute cardiopulmonary abnormality. Reviewed, dictated and finalized at location A.
--- NOTE | ~2022-12-22 | XR_ITS ---
EXAMINATION: XR chest 2V DATE: 12/22/2022 08:43 INDICATION: Chest pain and shortness of breath TECHNIQUE: Frontal and lateral views of the chest are obtained COMPARISON: 10/05/2022 FINDINGS: The lungs are free of acute opacities. No pleural effusion or pneumothorax. The cardiomegal y is noted. There are minimal airspace opacities of the lung bases. No pleural effusion or pneumothor ax. There is mild thoracic spondylosis. IMPRESSION: 1. Cardiomegaly. 2. Bibasilar airspace opacities, consistent with atelectasis versus pneumonia. Reviewed, dictated and finalized at location A.
--- NOTE | 2022-12-22 08:18 | ECG_ITS ---
Measurements Intervals [place] Rate: 84 P: MI: 0 QRS: 3 QRSD: 104 T: 17 QT: 357 QTc: 423 Interpretive Statements ATRIAL FIBRILLATION EARLY PRECORDIAL R/S TRANSITION ABNORMAL ECG COMPARED TO ECG 10/05/2022 21:48:02 ATRIAL FIBRILLATION NOW PRESENT Electronically Signed On 12-22-2022 8:40:47 CDT by Reinaldo Domínguez D.O.
[2022-12-22 08:27] LABS: Basophils Percent Auto 0.5 % (0.2-1.2); Eosinophils Absolute Auto 0.2 K/mm3 (0-0.3); Eosinophils Percent Auto 2.6 % (0-4.4); Hematocrit 30.6 % (37.0-47.0); Hemoglobin 9.8 g/dL (12.0-15.0); Immature Granulocyte Absolute 0.01 K/mm3 (0.00-0.031); Immature Granulocyte Percent A 0.2 % (0-0.5); Lymphocytes Absolute Auto 1.91 K/mm3 (0.9-3.2); Lymphocytes Percent Auto 32.7 % (18.3-44.2); Mean Corpuscular Hemoglobin 25.1 pg (26-34); Mean Corpuscular Volume 78.3 fl (80-100); Monocytes Absolute Auto 0.4 K/mm3 (0.1-0.6); Neutrophils Absolute Auto 3.3 K/mm3 (1.3-6.7); Platelet Count Result 243 k/mm3 (150-375); Red Blood Count 3.91 M/mm3 (4.2-5.4); White Blood Count 5.8 K/mm3 (4.5-10.0)
--- NOTE | 2022-12-22 08:28 | ED.CHESTPAIN ---
HPI - Chest Pain General Chief Complaint: Chest Pain Stated Complaint: dizzy, cp, back pain Time Seen by Provider: 12/22/22 08:18 History of Present Illness HPI narrative: Patient is a 62-year-old female who presents ER with concerns that she got overheated. She has been back to work for the last 2 days and had been doing well until this morning. She reports she started to get hot and lightheaded while she was at work. No loss of consciousness. No shortness of breath. She then began to have some pain in her back. Worse with movements. Patient recently underwent a cardiac ablation for atrial flutter on 11/19/2022. Her brake operator sheet metal is located at [facility]. She has been taking Xarelto up until 2 days ago. No lower extremity swelling or cramping. Related Data Home Medications Medication Instructions Recorded Confirmed atenolol 25 mg tablet mg 12/22/22 flecainide 100 mg tablet mg 12/22/22 12/22/22 Allergies Allergy/AdvReac Type Severity Reaction Status Date / Time No Known Allergies Allergy Verified 12/22/22 08:27 Review of Systems Review of Systems: All systems reviewed & are unremarkable except as noted in HPI and below Constitutional: Constitutional: Denies chills, Reports fatigue and Denies fever(s) ENT: Denies nasal congestion and Denies sore throat Cardiovascular: Cardiovascular: Denies chest pain, Denies rapid heart rate and Denies radiating jaw, neck or arm pain Respiratory: Respiratory: Denies cough and Denies dyspnea Gastrointestinal: Gastrointestinal: Denies abdominal pain, Denies nausea and Denies vomiting Musculoskeletal: Musculoskeletal: Reports back pain, Denies arthralgias, Denies joint swelling and Reports muscle cramps Neurologic: Reports dizziness and Denies numbness PMF Past Medical History Medical History (Updated 12/22/22 @ 11:25 by Nicholas Carranza MD) Heart failure with preserved ejection fraction Echo in July 2022 showed an EF of 60 to 65% and abnormal diastolic function. Obstructive sleep apnea Paroxysmal atrial fibrillation Surgical History Surgical History (Updated 12/22/22 @ 18:18 by Nicholas Carranza MD) H/O cardiac radiofrequency ablation History of hysterectomy History of right knee surgery Family History Family History Mother Family history of arthritis Social History Social History Social History: Surrogate medical decision maker: Mabel Marrero, daughter. Code status: Full code. Smoking packs per day: 1 Smoking cigarettes per day: 20.0 Years smoked: 6 Smoking pack-years: 6.00 Smoking status: Former smoker Tobacco type: cigarettes Second hand tobacco smoke exposure: No Alcohol intake: never Drinks per week: 2 Alcohol use details: Six beers on the weekends. Substance use: never Substance use type: does not use Lack of Transportation: No Lack of Food: Never True Current Housing: I Have Housing Concerned About Future Housing: No Difficulty Paying Gas/Electric Bills: No Difficulty Paying for Meds: No Currently Unemployed: No Education: High School Diploma/GED Difficulty w/ Childcare or Family Care: No Additional living arrangements comments: Lives alone in [place]. Has 2 grown children. 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 Spiritual care concerns: No Exam Narrative: GENERAL: Well-appearing, well-nourished, and in no acute distress. HEAD: Normocephalic, atraumatic. EYES: PERRL and EOMI. ENT: Mucous membranes moist. CHEST: Clear to auscultation. No respiratory distress. HEART: Irregular regular rate and rhythm. Normal peripheral pulses. ABDOMEN: Soft, nontender, nondistended. Back: No reproducible midline tenderness to T/L-spine. There is paraspinal muscular tenderness in bilateral paraspinal muscles
[2022-12-22 08:38] LABS: Alanine Aminotransferase 16 U/L (6-35); Alkaline Phosphatase 120 U/L (38-126); Anion Gap 6 mmol/L (8-16); Aspartate Amino Transferase 22 U/L (14-36); Bilirubin,Total 0.2 mg/dL (0.2-1.3); Blood Urea Nitrogen 26 mg/dL (7-17); Calcium 8.8 mg/dL (8.4-10.2); Carbon Dioxide 27 mmol/L (22-30); Chloride 104 mmol/L (98-107); Estimated CRCL calculation 70 ml/min; Estimated Glomerular Filt Rate > 60; Glucose 97 mg/dL (65-110); INR 1.7; Lipase 68 U/L (23-300); Prothrombin Time 21.3 Seconds (11.1-14.7); Sodium 137 mmol/L (137-145)
[2022-12-22] MEDS: ASPIRIN 81 MG CHEWABLE TABLET 324 MG PO (08:46)
[2022-12-22 08:49] LABS: Troponin I < 0.012 ng/mL (0.000-0.034)
[2022-12-22] MEDS: SODIUM CHLORIDE 0.9% IV 500 ML 999 ML IV CONT (09:39)
[2022-12-22] MEDS: MORPHINE SULFATE (*CRX) 2 MG/ML INJ IV PUSH (09:42)
[2022-12-22] MEDS: KETOROLAC 15 MG/ML VIAL (*BKC) IV PUSH (09:42)
[2022-12-22 11:52] LABS: Troponin I < 0.012 ng/mL (0.000-0.034)
== END 2022-12-22 11:55 | disposition home or self-care (01) ==
PROVIDERS: Emergency Provider Emergency Medicine; PCP Physician Assistant
DX: I48.0 Paroxysmal atrial fibrillation (principal); M62.830 Muscle spasm of back; G47.33 Obstructive sleep apnea (adult) (pediatric); Z90.710 Acquired absence of both cervix and uterus; Z87.891 Personal history of nicotine dependence
CPT/HCPCS: 36415; 71046; 71275; 80053; 83690; 84484; 85025; 85610; 85730; 93005; 96361; 96374; 96375; 99284; A9270; J1885; J2270; J7040; Q9967

== ENCOUNTER 2023-02-19 03:33 | Day surgery (SDC) | payer BC, SELFPAY ==
[2023-02-09 11:51] VITALS: BMI 43.2
--- NOTE | 2023-02-16 11:22 | SUR.PREOP ---
Lis was called and informed to not take her xarelto starting today for her procedure scheduled on wednesday
--- NOTE | 2023-02-16 11:25 | SUR.PREOP ---
Pt arrived for a colonoscopy today. Upon inquiring about her colon prep, states she did not take the laxatives but took Miralax. She was unsure how much she took. States she started drinking the Miralax at 1600 yesterday and drank 16 more ounces of her Miralax this morning at 0700. States her stool is brown liquid. Also states that she had meatloaf and potatoes yesterday at 1800. Did not stop taking her Xarelto, took it yesterday. Pt cancelled and to be rescheduled. Spoke with patient about the colon prep. Gave her instructions. Verbalizes understanding.
[2023-02-19 12:47] VITALS: BP 132/77; PULSE 64; RESP 20; TEMP 36.1; O2SAT 100
[2023-02-19] MEDS: LACTATED RINGERS 1,000 ML 150 ML IV CONT (13:07)
--- NOTE | 2023-02-19 13:08 | PM.HPGS ---
History of Present Illness History of Present Illness Consent: Risks, benefits, and alternatives have been discussed and questions answered. Patient agrees to proceed with procedure. Chief complaint: neoplasm screening Narrative: Lis Lazaro is a 63 year old female here for screening colonoscopy Review of Systems Constitutional: Constitutional: Denies headache(s) and Denies weakness Eyes: Eyes: Denies blurry vision ENT: Reports Normal hearing present, Denies headache(s) and Denies neck pain Cardiovascular: Cardiovascular: Denies chest pain and Denies dyspnea Respiratory: Respiratory: Denies dyspnea Gastrointestinal: Gastrointestinal: Reports no additional gastrointestinal complaints Genitourinary: Genitourinary: Denies dysuria Musculoskeletal: Musculoskeletal: Denies neck pain Integumentary/Breasts: Skin/Breast: Denies dry skin Neurologic: Reports Normal hearing present, Denies headache(s) and Denies weakness Psychiatric: Psychiatric: Denies anxiety Endocrine: Endocrine: Denies change in body appearance Hematologic/Lymphatic: Hematologic/Lymphatic: Denies easy bleeding Allergic/Immunologic: Allergic/Immunologic: Denies urticaria PMF Past Medical History Medical History (Updated 02/19/23 @ 13:08 by Luis Silver MD) Colon cancer screening Heart failure with preserved ejection fraction Echo in July 2022 showed an EF of 60 to 65% and abnormal diastolic function. Obstructive sleep apnea Paroxysmal atrial fibrillation Surgical History Surgical History H/O cardiac radiofrequency ablation History of hysterectomy History of right knee surgery Family History Family History Mother Family history of arthritis Social History Social History Social History: Surrogate medical decision maker: Mabel Cadetl, daughter. Code status: Full code. Smoking packs per day: 0.5 Smoking cigarettes per day: 10.0 Years smoked: 20 Smoking pack-years: 10.00 Smoking status: Former smoker Tobacco type: cigarettes Second hand tobacco smoke exposure: No Alcohol intake: current Drinks per week: 2 Alcohol use details: Six beers on the weekends. Substance use: never Substance use type: does not use Lack of Transportation: No Lack of Food: Never True Current Housing: I Have Housing Concerned About Future Housing: No Difficulty Paying Gas/Electric Bills: No Difficulty Paying for Meds: No Currently Unemployed: No Education: High School Diploma/GED Difficulty w/ Childcare or Family Care: No Living arrangements: with family Additional living arrangements comments: Lives alone in [place]. Has 2 grown children. 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 Spiritual care concerns: No Meds Home Medications and Allergies Home Medications Medication Instructions Recorded Confirmed Type escitalopram oxalate 10 mg tablet 10 mg PO DAILY #90 tabs 08/27/22 02/09/23 Rx (Lexapro) furosemide 40 mg tablet 40 mg PO DAILY #90 tabs 09/16/22 02/09/23 Rx potassium chloride 20 mEq 40 meq PO DAILY@0800 #180 tabs 12/04/22 02/09/23 Rx tablet,extended release (K-Tab) alprazolam 0.5 mg tablet 0.5 mg PO DAILY PRN anxiety #30 01/01/23 02/09/23 Rx tabs cyclobenzaprine 10 mg tablet 10 mg PO QHS PRN muscle spasm #30 01/01/23 02/09/23 Rx tabs magnesium oxide 400 mg PO BID 02/09/23 02/09/23 History rivaroxaban 20 mg tablet (Xarelto) 20 mg PO DAILY 02/09/23 02/09/23 History Allergies Allergy/AdvReac Type Severity Reaction Status Date / Time atenolol Allergy Intermediate Dizziness Verified 02/19/23 12:46 flecainide Allergy Intermediate Dizziness Verified 02/19/23 12:46 Vital Signs Vital Signs - 24 hr 02/19/23 12:47 Temperature 9
--- NOTE | 2023-02-19 13:14 | WPDANESEPPF ---
Anes - Initial Pre Proc Eval Procedure: Operation Date: 02/19/23 14:00 Proposed Procedures p Screening Colonoscopy - Luis Silver MD Date/Time: 02/19/23 13:14 Surgeon: Luis Silver MD Pre Op Diagnosis: neoplasm screening Patient Data Age: 63 Gender: F Height: 1.65 m Weight: 121 kg Last Vital Signs Temp 97 F L 02/19/23 12:47 Pulse 64 02/19/23 12:47 Resp 20 02/19/23 12:47 BP 132/77 02/19/23 12:47 Pulse Ox 100 02/19/23 12:47 O2 Del Method Room Air 02/19/23 12:47 Allergies Allergy/AdvReac Type Severity Reaction Status Date / Time atenolol Allergy Intermediate Dizziness Verified 02/19/23 12:46 flecainide Allergy Intermediate Dizziness Verified 02/19/23 12:46 Home Medications Medication Instructions Recorded Confirmed Type escitalopram oxalate 10 mg tablet 10 mg PO DAILY #90 tabs 08/27/22 02/09/23 Rx (Lexapro) furosemide 40 mg tablet 40 mg PO DAILY #90 tabs 09/16/22 02/09/23 Rx potassium chloride 20 mEq 40 meq PO DAILY@0800 #180 tabs 12/04/22 02/09/23 Rx tablet,extended release (K-Tab) alprazolam 0.5 mg tablet 0.5 mg PO DAILY PRN anxiety #30 01/01/23 02/09/23 Rx tabs cyclobenzaprine 10 mg tablet 10 mg PO QHS PRN muscle spasm #30 01/01/23 02/09/23 Rx tabs magnesium oxide 400 mg PO BID 02/09/23 02/09/23 History rivaroxaban 20 mg tablet (Xarelto) 20 mg PO DAILY 02/09/23 02/09/23 History Patient hx anesthesia problems: none Family hx anesthesia problems: none Results Review: All pre-operative results and documents have been reviewed as part of the pre-operative evaluation. [facility] Past Medical History Medical History (Updated 02/19/23 @ 13:08 by Luis Silver MD) Colon cancer screening Heart failure with preserved ejection fraction Echo in July 2022 showed an EF of 60 to 65% and abnormal diastolic function. Obstructive sleep apnea Paroxysmal atrial fibrillation Surgical History Surgical History H/O cardiac radiofrequency ablation History of hysterectomy History of right knee surgery Family History Family History Mother Family history of arthritis Social History Social History Social History: Surrogate medical decision maker: Mabel Marrero, daughter. Code status: Full code. Smoking packs per day: 0.5 Smoking cigarettes per day: 10.0 Years smoked: 20 Smoking pack-years: 10.00 Smoking status: Former smoker Tobacco type: cigarettes Second hand tobacco smoke exposure: No Alcohol intake: current Drinks per week: 2 Alcohol use details: Six beers on the weekends. Substance use: never Substance use type: does not use Lack of Transportation: No Lack of Food: Never True Current Housing: I Have Housing Concerned About Future Housing: No Difficulty Paying Gas/Electric Bills: No Difficulty Paying for Meds: No Currently Unemployed: No Education: High School Diploma/GED Difficulty w/ Childcare or Family Care: No Living arrangements: with family Additional living arrangements comments: Lives alone in [place]. Has 2 grown children. 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 Spiritual care concerns: No Anes - Eval Final PreProcedure Day of Procedure 02/19/23 13:14 Patient weight: morbidly obese Heart: regular rate and rhythm Lungs: clear to auscultation Neurological: alert and oriented Last oral intake: >/= 8 hours ASA classification: III Emergent: no Anesthetic plan: proceed Anesthesia type and monitoring: general GIVS and standard monitoring Results Review: All pre-operative results and documents have been reviewed as part of the pre-operative evaluation. Informed Consent: The patient's anesthetic plan and its attendant risks and
[2023-02-19 13:39] VITALS: BP 93/47; PULSE 60; RESP 23; O2SAT 100
--- NOTE | 2023-02-19 13:47 | WPDANESEPPF ---
Anes - Initial Pre Proc Eval Procedure: Operation Date: 02/19/23 14:00 Proposed Procedures p Screening Colonoscopy - Luis Silver MD Date/Time: 02/19/23 13:47 Surgeon: Luis Silver MD Pre Op Diagnosis: neoplasm screening Patient Data Age: 63 Gender: F Height: 1.65 m Weight: 121 kg Last Vital Signs Temp 97 F L 02/19/23 12:47 Pulse 60 02/19/23 13:39 Resp 23 H 02/19/23 13:39 BP 93/47 L 02/19/23 13:39 Pulse Ox 100 02/19/23 13:39 O2 Del Method Room Air 02/19/23 13:39 Allergies Allergy/AdvReac Type Severity Reaction Status Date / Time atenolol Allergy Intermediate Dizziness Verified 02/19/23 12:46 flecainide Allergy Intermediate Dizziness Verified 02/19/23 12:46 Home Medications Medication Instructions Recorded Confirmed Type escitalopram oxalate 10 mg tablet 10 mg PO DAILY #90 tabs 08/27/22 02/09/23 Rx (Lexapro) furosemide 40 mg tablet 40 mg PO DAILY #90 tabs 09/16/22 02/09/23 Rx potassium chloride 20 mEq 40 meq PO DAILY@0800 #180 tabs 12/04/22 02/09/23 Rx tablet,extended release (K-Tab) alprazolam 0.5 mg tablet 0.5 mg PO DAILY PRN anxiety #30 01/01/23 02/09/23 Rx tabs cyclobenzaprine 10 mg tablet 10 mg PO QHS PRN muscle spasm #30 01/01/23 02/09/23 Rx tabs magnesium oxide 400 mg PO BID 02/09/23 02/09/23 History rivaroxaban 20 mg tablet (Xarelto) 20 mg PO DAILY 02/09/23 02/09/23 History Patient hx anesthesia problems: none Family hx anesthesia problems: none Results Review: All pre-operative results and documents have been reviewed as part of the pre-operative evaluation. [facility] Past Medical History Medical History (Updated 02/19/23 @ 13:08 by Luis Silver MD) Colon cancer screening Heart failure with preserved ejection fraction Echo in July 2022 showed an EF of 60 to 65% and abnormal diastolic function. Obstructive sleep apnea Paroxysmal atrial fibrillation Surgical History Surgical History H/O cardiac radiofrequency ablation History of hysterectomy History of right knee surgery Family History Family History Mother Family history of arthritis Social History Social History Social History: Surrogate medical decision maker: Mabel Marrero, daughter. Code status: Full code. Smoking packs per day: 0.5 Smoking cigarettes per day: 10.0 Years smoked: 20 Smoking pack-years: 10.00 Smoking status: Former smoker Tobacco type: cigarettes Second hand tobacco smoke exposure: No Alcohol intake: current Drinks per week: 2 Alcohol use details: Six beers on the weekends. Substance use: never Substance use type: does not use Lack of Transportation: No Lack of Food: Never True Current Housing: I Have Housing Concerned About Future Housing: No Difficulty Paying Gas/Electric Bills: No Difficulty Paying for Meds: No Currently Unemployed: No Education: High School Diploma/GED Difficulty w/ Childcare or Family Care: No Living arrangements: with family Additional living arrangements comments: Lives alone in [place]. Has 2 grown children. 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 Spiritual care concerns: No Anes - Eval Final PreProcedure Day of Procedure 02/19/23 13:47 Patient weight: morbidly obese Heart: regular rate and rhythm Lungs: clear to auscultation Airway: Mallampati scale class II Neurological: alert and oriented Last oral intake: >/= 8 hours ASA classification: III Emergent: no Anesthetic plan: proceed Anesthesia type and monitoring: general GIVS and standard monitoring Results Review: All pre-operative results and documents have been reviewed as part of the pre-operative evaluation. Informed Consent: The patient's anesthe
[2023-02-19 13:49] VITALS: BP 96/47; PULSE 53; RESP 17; O2SAT 100
[2023-02-19 13:59] VITALS: BP 109/56; PULSE 50; RESP 17; O2SAT 100
== END 2023-02-19 14:09 | disposition home or self-care (01) ==
PROVIDERS: PCP Physician Assistant; Visit Provider Internal Medicine Gastroenterology
PROC: 0DJD8ZZ Inspection of Lower Intestinal Tract, Via Natural or Artificial Opening Endoscopic (ICD-10-PCS; CPT 45378; principal; 2023-02-19 14:00)
DX: Z12.11 Encounter for screening for malignant neoplasm of colon (principal); D12.4 Benign neoplasm of descending colon; K64.8 Other hemorrhoids; I48.0 Paroxysmal atrial fibrillation; I50.9 Heart failure, unspecified; G47.33 Obstructive sleep apnea (adult) (pediatric); Z79.01 Long term (current) use of anticoagulants; Z87.891 Personal history of nicotine dependence; E66.01 Morbid (severe) obesity due to excess calories; Z68.41 Body mass index [BMI] 40.0-44.9, adult
CPT/HCPCS: 45385; 88305; J2704; J7120

== ENCOUNTER 2023-07-26 15:59 | Outpatient (CLI) | payer MEDICARE, SELFPAY ==
[2023-07-26 17:01] LABS: Basophils Absolute Auto 0.1 K/mm3 (0.0-0.1); Basophils Percent Auto 0.7 % (0.2-1.2); Eosinophils Absolute Auto 0.1 K/mm3 (0-0.3); Eosinophils Percent Auto 1.7 % (0-4.4); Hematocrit 38.7 % (37.0-47.0); Hemoglobin 11.5 g/dL (12.0-15.0); Immature Granulocyte Absolute 0.02 K/mm3 (0.00-0.031); Immature Granulocyte Percent A 0.3 % (0-0.5); Lymphocytes Absolute Auto 2.97 K/mm3 (0.9-3.2); Lymphocytes Percent Auto 38.9 % (18.3-44.2); Mean Corpuscular HGB Conc 29.7 g/dl (32-36); Mean Corpuscular Hemoglobin 22.2 pg (26-34); Mean Corpuscular Volume 74.7 fl (80-100); Monocytes Absolute Auto 0.6 K/mm3 (0.1-0.6); Monocytes Percent Auto 7.7 % (2.6-8.5); Neutrophils Absolute Auto 3.9 K/mm3 (1.3-6.7); Neutrophils Percent Auto 50.7 % (45.5-73.1); Platelet Count Result 367 k/mm3 (150-375); Red Blood Count 5.18 M/mm3 (4.2-5.4); Red Cell Distribution Width 15.8 % (11.5-14.5); White Blood Count 7.6 K/mm3 (4.5-10.0)
[2023-07-26 17:30] LABS: Alanine Aminotransferase 23 U/L (6-35); Albumin Level 4.2 g/dL (3.5-5.1); Alkaline Phosphatase 133 U/L (38-126); Anion Gap 8 mmol/L (8-16); Aspartate Amino Transferase 27 U/L (14-36); Bilirubin,Total 0.4 mg/dL (0.2-1.3); Blood Urea Nitrogen 11 mg/dL (7-17); Calcium 9.6 mg/dL (8.4-10.2); Carbon Dioxide 26 mmol/L (22-30); Chloride 104 mmol/L (98-107); Cholesterol 244 mg/dL (0-200); Estimated Glomerular Filt Rate > 60; Glucose 97 mg/dL (65-110); HDL Direct 39 mg/dL; Platelet Estimate Adequate (Adequate); Potassium 4.3 mmol/L (3.4-5.0); Schistocytes None Seen (NORMAL); Sodium 138 mmol/L (137-145); Triglycerides 158 mg/dL (<150)
[2023-07-26 17:31] LABS: Anisocytosis 2+ (NORMAL); Hypochromasia 1+ (NORMAL); Microcytosis 1+ (NORMAL)
[2023-07-26 17:34] LABS: Hemoglobin A1C 6.1 % (<5.7)
[2023-07-26 17:38] LABS: LDL Cholesterol Direct 132 mg/dL
[2023-07-26 17:48] LABS: Total Triiodothyronine (T3) 1.51 NG/ML (0.97-1.69)
[2023-07-26 17:50] LABS: Free T4 Free Thyroxine 1.23 ng/mL (0.78-2.19)
== END 2023-07-26 16:00 | disposition home or self-care (01) ==
PROVIDERS: PCP Physician Assistant; Visit Provider Internal Medicine Cardiovascular Disease
DX: I48.92 Unspecified atrial flutter (principal); R55 Syncope and collapse; E66.9 Obesity, unspecified; G47.30 Sleep apnea, unspecified; R00.2 Palpitations
CPT/HCPCS: 36415; 80053; 80061; 83036; 84439; 84443; 84480; 85025

== ENCOUNTER 2023-07-30 15:45 | Outpatient (CLI) | payer MEDICARE, SELFPAY ==
[2023-07-30 17:22] LABS: Iron 39 ug/dL (37-170)
[2023-07-30 17:32] LABS: Percent Iron Saturation 10 % (20-50)
== END 2023-07-30 15:46 | disposition home or self-care (01) ==
PROVIDERS: PCP Physician Assistant; Visit Provider Physician Assistant
DX: D64.9 Anemia, unspecified (principal); R77.8 Other specified abnormalities of plasma proteins
CPT/HCPCS: 36415; 82728; 83540; 83550; 84155

== ENCOUNTER 2024-05-30 10:26 | Outpatient (CLI) | payer MEDICARE, SELFPAY ==
--- NOTE | ~2024-05-30 | MM_ITS ---
EXAMINATION: MM screening hillary BI w nerissa HISTORY: Screening mammogram TECHNIQUE: Craniocaudal and mediolateral oblique 3-D tomosynthesis images were obtained and synthetic 2-D images were generated. CAD analysis was submitted and interpreted. COMPARISON: No prior mammogram is available for comparison at this institution. BREAST PARENCHYMAL COMPOSITION:Not Dense. The breasts are almost entirely fatty FINDINGS: No suspicious mass, calcification, or architectural distortion are identified in either betsy ast to suggest malignancy. There has been no suspicious interval change. IMPRESSION: No mammographic evidence of malignancy. Recommend routine screening mammography in one year. BI-RADS Category 1: Negative Reviewed, dictated and finalized at location . [facility]
== END 2024-05-30 10:27 | disposition home or self-care (01) ==
PROVIDERS: PCP Internal Medicine; Visit Provider Internal Medicine
DX: Z12.31 Encounter for screening mammogram for malignant neoplasm of breast (principal)
CPT/HCPCS: 77063; 77067

== ENCOUNTER 2024-05-30 14:30 | Outpatient (CLI) | payer MEDICARE, SELFPAY ==
[2024-05-30 16:02] LABS: Basophils Absolute Auto 0.1 K/mm3 (0.0-0.1); Basophils Percent Auto 0.8 % (0.2-1.2); Eosinophils Absolute Auto 0.1 K/mm3 (0-0.3); Eosinophils Percent Auto 1.7 % (0-4.4); Hematocrit 39.1 % (37.0-47.0); Hemoglobin 11.8 g/dL (12.0-15.0); Immature Granulocyte Absolute 0.01 K/mm3 (0.00-0.031); Immature Granulocyte Percent A 0.2 % (0-0.5); Lymphocytes Absolute Auto 2.63 K/mm3 (0.9-3.2); Lymphocytes Percent Auto 44.6 % (18.3-44.2); Mean Corpuscular HGB Conc 30.2 g/dl (32-36); Mean Corpuscular Hemoglobin 22.2 pg (26-34); Mean Corpuscular Volume 73.6 fl (80-100); Mean Platelet Volume 10.2 fl (7.4-10.4); Monocytes Absolute Auto 0.4 K/mm3 (0.1-0.6); Monocytes Percent Auto 6.8 % (2.6-8.5); Neutrophils Absolute Auto 2.7 K/mm3 (1.3-6.7); Neutrophils Percent Auto 45.9 % (45.5-73.1); Platelet Count Result 280 k/mm3 (150-375); Red Blood Count 5.31 M/mm3 (4.2-5.4); Red Cell Distribution Width 18.8 % (11.5-14.5); White Blood Count 5.9 K/mm3 (4.5-10.0)
[2024-05-30 16:16] LABS: Alanine Aminotransferase 22 U/L (6-35); Albumin Level 4.3 g/dL (3.5-5.1); Alkaline Phosphatase 106 U/L (38-126); Anion Gap 6 mmol/L (4-12); Aspartate Amino Transferase 30 U/L (14-36); Bilirubin,Total 0.4 mg/dL (0.2-1.3); Blood Urea Nitrogen 15 mg/dL (7-17); Calcium 9.5 mg/dL (8.4-10.2); Carbon Dioxide 27 mmol/L (22-30); Chloride 105 mmol/L (98-107); Cholesterol 251 mg/dL (0-200); Estimated Glomerular Filt Rate > 60; Glucose 110 mg/dL (65-110); HDL Direct 46 mg/dL; Sodium 138 mmol/L (137-145); Triglycerides 118 mg/dL (<150)
[2024-05-30 16:31] LABS: Iron 40 ug/dL (37-170); LDL Cholesterol Direct 145 mg/dL
[2024-05-30 16:35] LABS: Large Platelets Present; Platelet Estimate Adequate (Adequate)
[2024-05-30 16:36] LABS: Anisocytosis 1+; Ovalocytes 1+; Schistocytes None Seen; Target Cells 1+
[2024-05-30 16:40] LABS: Percent Iron Saturation 11 % (20-50)
[2024-05-30 17:23] LABS: Folic Acid 11.9 ng/mL (2.76->20)
[2024-05-31 07:48] LABS: Protein, Total 7.6 g/dL (6.1-8.1)
[2024-06-07 20:44] LABS: Albumin 3.9 g/dL (3.8-4.8); Alpha 1 Globulin 0.3 g/dL (0.2-0.3); Beta 1 Globulin 0.6 g/dL (0.4-0.6); Gamma Globulin 1.5 g/dL (0.8-1.7)
== END 2024-05-30 14:31 | disposition home or self-care (01) ==
PROVIDERS: Physician Assistant; PCP Internal Medicine; Visit Provider Internal Medicine
DX: D64.9 Anemia, unspecified (principal); E87.6 Hypokalemia; I48.0 Paroxysmal atrial fibrillation; I50.30 Unspecified diastolic (congestive) heart failure; R77.8 Other specified abnormalities of plasma proteins; R53.83 Other fatigue
CPT/HCPCS: 36415; 80053; 80061; 82607; 82746; 83540; 83550; 84155; 84165; 84443; 85025

== ENCOUNTER 2025-01-05 12:43 | Outpatient (CLI) | payer MEDICARE, SELFPAY ==
[2025-01-05 13:27] LABS: Hematocrit 38.7 % (37.0-47.0); Hemoglobin 11.7 g/dL (12.0-15.0); Immature Granulocyte Percent A 0.2 % (0-0.5); Lymphocytes Absolute Auto 2.18 K/mm3 (0.9-3.2); Mean Corpuscular HGB Conc 30.2 g/dl (32-36); Mean Corpuscular Hemoglobin 22.3 pg (26-34); Mean Corpuscular Volume 73.7 fl (80-100); Nucleated Red Blood Cells Absolute Auto 0.000 K/mm3 (0.0-0.012); Nucleated Red Blood Cells Perc 0.0 % (0.0-0.2); Platelet Count Result 286 k/mm3 (150-375); Red Blood Count 5.25 M/mm3 (4.2-5.4); White Blood Count 6.2 K/mm3 (4.5-10.0)
[2025-01-05 13:49] LABS: Alanine Aminotransferase 30 U/L (6-35); Albumin Level 4.0 g/dL (3.5-5.1); Alkaline Phosphatase 101 U/L (38-126); Anion Gap 7 mmol/L (4-12); Aspartate Amino Transferase 38 U/L (14-36); Bilirubin,Total 0.3 mg/dL (0.2-1.3); Blood Urea Nitrogen 12 mg/dL (7-17); Calcium 9.3 mg/dL (8.4-10.2); Carbon Dioxide 26 mmol/L (22-30); Chloride 104 mmol/L (98-107); Cholesterol 163 mg/dL (0-200); Estimated Glomerular Filt Rate > 60; Glucose 102 mg/dL (65-110); HDL Direct 38 mg/dL; Potassium 4.9 mmol/L (3.4-5.0); Sodium 137 mmol/L (137-145); Total Protein 8.3 g/dL (6.3-8.2); Triglycerides 141 mg/dL (<150)
[2025-01-05 13:54] LABS: Hemoglobin A1C 5.9 % (<5.7)
[2025-01-05 14:16] LABS: Ferritin 16.00 ng/mL (11.1-264)
== END 2025-01-05 12:44 | disposition home or self-care (01) ==
PROVIDERS: PCP Internal Medicine; Visit Provider Internal Medicine
DX: R73.9 Hyperglycemia, unspecified (principal); D64.9 Anemia, unspecified; E78.5 Hyperlipidemia, unspecified; I48.91 Unspecified atrial fibrillation
CPT/HCPCS: 36415; 80053; 80061; 82728; 83021; 83036; 85025